=== PATIENT | male | born 1980 | race Caucasian/White ===

== ENCOUNTER 2017-04-10 09:48 | Emergency (ER) | payer OTHER ==
--- NOTE | 2017-04-10 09:59 | ER Document Report ---
ED Medical Screen (RME) - General Chief Complaint: Abdominal Pain Stated Complaint: ABDOMINAL PAIN Time Seen by Provider: 04/10/17 09:58 Notes: Patient states he has right flank pain that radiates across the lower part of his abdomen. He states he does have a history of diverticulitis and this does feel similar. He states he has been able to control in the past with a liquid diet but this is not currently working. He also states he has seen blood in his urine and believes he may have a kidney stone. He states his symptoms been going on for approximately 2 days. No previous abdominal surgeries. No significant chronic medical conditions. TRAVEL OUTSIDE OF THE [place] IN LAST 30 DAYS: No - Related Data Allergies/Adverse Reactions: No Known Allergies Allergy (Unverified 09/21/15 12:16) Past Medical History - Past Medical History Cardiac Medical History: Denies: Hx Coronary Artery Disease, Hx Heart Attack, Hx Hypertension Pulmonary Medical History: Reports: Hx Bronchitis Denies: Hx Asthma, Hx COPD, Hx Pneumonia Neurological Medical History: Denies: Hx Cerebrovascular Accident, Hx Seizures Renal/ Medical History: Denies: Hx Peritoneal Dialysis GI Medical History: Reports: Hx Gastroesophageal Reflux Disease Musculoskeltal Medical History: Denies Hx Arthritis Psychiatric Medical History: Reports: Hx Anxiety, Hx Attention Deficit Hyperactivity Disorder Past Surgical History: Reports: Hx Testicular Surgery. Denies: Hx Pacemaker - Immunizations Hx Diphtheria, Pertussis, Tetanus Vaccination: Yes Physical Exam - Vital signs Vitals: Resp 04/10/17 09:50 Course - Vital Signs Vital signs: Temp Pulse Resp BP Pulse Ox 04/10/17 09:50
[2017-04-10 10:27] LABS: HEMATOCRIT 45.1 % (37.9-51.0); HEMOGLOBIN 15.4 g/dL (13.5-17.0); HGB HCT DIFFERENCE 1.1; MEAN CORPUSCULAR HEMOGLOBIN 31.4 pg (27.0-33.4); MEAN CORPUSCULAR HGB CONC 34.1 g/dL (32.0-36.0); MEAN CORPUSCULAR VOLUME 92 fl (80-97); RED CELL DISTRIBUTION WIDTH 13.3 % (11.5-14.0); WHITE BLOOD COUNT 21.8 10^3/uL (4.0-10.5)
[2017-04-10 10:33] LABS: APPEARANCE,URINE CLEAR; BILIRUBIN,URINE NEGATIVE (NEGATIVE); GLUCOSE, URINE NEGATIVE (NEGATIVE); KETONES,URINE 80 mg/dL (NEGATIVE); LEUKOCYTE ESTERASE,URINE NEGATIVE (NEGATIVE); NITRITE,URINE NEGATIVE (NEGATIVE); PROTEIN,URINE 30 mg/dL (NEGATIVE); URINE SPECIFIC GRAVITY 1.028
[2017-04-10 10:45] LABS: BASOPHILS % (MANUAL) 0 % (0-2); EOSINOPHILS % (MANUAL) 0 % (0-6); LYMPHOCYTES % (MANUAL) 7 % (13-45); TOTAL CELLS COUNTED 100
[2017-04-10 10:48] LABS: ALANINE AMINOTRANSFERASE 31 U/L (21-72); ALBUMIN 4.4 g/dL (3.5-5.0); ALKALINE PHOSPHATASE 82 U/L (38-126); ANION GAP 15 (5-19); ASPARTATE AMINO TRANSFERASE 25 U/L (17-59); BILIRUBIN,DIRECT 0.6 mg/dL (0.0-0.4); BILIRUBIN,TOTAL 1.7 mg/dL (0.2-1.3); BLOOD UREA NITROGEN 15 mg/dL (7-20); CALCIUM 9.7 mg/dL (8.4-10.2); CARBON DIOXIDE 21 mmol/L (22-30); CHLORIDE 100 mmol/L (98-107); CREATININE RESULT 1.02 mg/dL (0.52-1.25); GLUCOSE 97 mg/dL (75-110); LIPASE 17.5 U/L (23-300); PLATELET CLUMPS PRESENT; POTASSIUM 4.2 mmol/L (3.6-5.0); RBC MORPHOLOGY COMMENT NORMO-CYTIC/CHROMIC; SODIUM 135.8 mmol/L (137-145); TOTAL PROTEIN 7.4 g/dL (6.3-8.2); TOXIC GRANULATION SLIGHT; TOXIC VACUOLATION PRESENT
--- NOTE | 2017-04-10 12:04 | ER Document Report ---
ED GI/ - General Mode of Arrival: Ambulatory Information source: Patient TRAVEL OUTSIDE OF THE [place] IN LAST 30 DAYS: No <CHARLES LYONS - Last Filed: 04/10/17 12:44> <VELMA TORRES - Last Filed: 04/10/17 14:11> - General Chief Complaint: Abdominal Pain Stated Complaint: ABDOMINAL PAIN Time Seen by Provider: 04/10/17 09:58 Notes: Patient is a 37-year-old male that presents to the emergency department today with complaints of bilateral lower quadrant abdominal pain. Patient states he noticed blood in his urine as well. Patient states his symptoms began Sunday evening which is 3 days ago. Patient states he was told in the past that he had stones in his kidneys. (CHARLES LYONS) - Related Data Allergies/Adverse Reactions: No Known Allergies Allergy (Verified 04/10/17 09:59) Home Medications: Current Home Medications Loratadine [Claritin] 10 mg PO DAILY 04/10/17 [History] Past Medical History - General Information source: Patient - Social History Smoking Status: Current Every Day Smoker Cigarette use (# per day): Yes Frequency of alcohol use: Rare Lives with: Family Family History: Reviewed & Not Pertinent Patient has suicidal ideation: No Pulmonary Medical History: Reports: Hx Bronchitis GI Medical History: Reports: Hx Gastroesophageal Reflux Disease Psychiatric Medical History: Reports: Hx Anxiety, Hx Attention Deficit Hyperactivity Disorder Past Surgical History: Reports: Hx Testicular Surgery - Immunizations Hx Diphtheria, Pertussis, Tetanus Vaccination: Yes <CHARLES LYONS - Last Filed: 04/10/17 12:44> Review of Systems - Review of Systems Constitutional: No symptoms reported EENT: No symptoms reported Cardiovascular: No symptoms reported Respiratory: No symptoms reported Gastrointestinal: See HPI, Abdominal pain Genitourinary: See HPI, Hematuria Male Genitourinary: No symptoms reported Musculoskeletal: No symptoms reported Skin: No symptoms reported Hematologic/Lymphatic: No symptoms reported Neurological/Psychological: See HPI, Headaches -: Yes All other systems reviewed and negative <CHARLES LYONS - Last Filed: 04/10/17 12:44> Physical Exam - Vital signs Interpretation: Normal - General General appearance: Appears well, Alert, Other - wearing sunglasses - HEENT Head: Normocephalic, Atraumatic Eyes: Normal Pupils: PERRL - Respiratory Respiratory status: No respiratory distress Breath sounds: Normal Chest palpation: Normal - Cardiovascular Rhythm: Regular Heart sounds: Normal auscultation Murmur: No - Abdominal Distension: No distension Bowel sounds: Normal Tenderness: Tender - lower bilateral tenderness with palpation Organomegaly: No organomegaly - Back Back: Tender - right lumbar tenderness with palpation - Extremities General upper extremity: Normal inspection, Normal ROM. No: Edema General lower extremity: Normal inspection, Normal ROM. No: Edema - Neurological Neuro grossly intact: Yes Cognition: Normal Orientation: AAOx4 Cathryn Coma Scale Eye Opening: Spontaneous Cathryn Coma Scale Verbal: Oriented [place]lin Coma Scale Motor: Obeys Commands [place]lin Coma Scale Total: 15 Speech: Normal - Psychological Associated symptoms: Normal affect, Normal mood - Skin Skin Temperature: Warm Skin Moisture: Dry Skin Color: Normal <CHARLES LYONS - Last Filed: 04/10/17 12:44> - Vital signs Vitals: Resp 20 04/10/17 09:50 Course - Laboratory Result Diagrams: 04/10/17 10:07 04/10/17 10:07 <CHARLES LYONS - Last Filed: 04/10/17 12:44> - Laboratory Result Diagrams: 04/10/17 10:07 04/10/17 10:07 - Diagnostic Test Radiology reviewed: Image reviewed, Reports reviewed - Sigmoid diverticulitis <VELMA TORRES - Last Filed: 04/10/17 14:11> - Vital Signs Vital signs: Temp Pulse Resp BP Pulse Ox 20 04/10/17 09:50 - Laboratory Laboratory results interpreted by me: 04/10/17 04/10/17 04/10/17 10:07 10:07 10:07 WBC 21.8 H Seg Neuts % (Manual) 83 H Lymphocytes % (Manual) 7 L Abs Neuts (Manual) 18.1 H Abs Monocytes (Manual) 1.7 H Sodium 135.8 L Carbon Dioxide 21 L Total Bilirubin 1.7 H Direct Bilirubin 0.6 H Lipase 17.5 L Urine Protein 30 H Urine Ketones 80 H Urine Blood MODERATE H Urine Urobilinogen 4.0 H Discharge <CHARLES LYONS - Last Filed: 04/10/17 12:44> <VELMA TORRES - Last Filed: 04/10/17 14:11> - Discharge Clinical Impression: Diverticulitis of sigmoid colon Condition: Stable Disposition: HOME, SELF-CARE Additional Instructions: Diverticulitis: You have been diagnosed as having diverticulitis. This is an inflammation of a small pouch attached to the colon, called a diverticulum. Many of these small pouches can form on the colon as you get older. They are often caused by constipation. When inflamed or infected, symptoms arise -- usually abdominal pain, constipation or diarrhea, fever, and blood in the stool. Severe diverticulitis may require hospitalization. More mild cases are usually treated with antibiotics and clear liquid diet. As you improve, a diet low in residue (one which forms little stool) is prescribed. When you are better, you should eat a high-fiber diet. Stool softeners ( like Metamucil) are usually recommended. Call the doctor or go to the hospital if there is increasing pain, vomiting , high fever, large amounts of blood passed, or if bowel movements cease. TAKE THE MEDICATION PRESCRIBED. DRINK PLENTY OF FLUIDS. REST. CALL [facility] FOR AN APPOINTMENT. RETURN TO THE EMERGENCY ROOM IF ANY NEW OR WORSENING SYMPTOMS. Prescriptions: Ciprofloxacin HCl [Cipro 750 mg Tablet] 750 mg PO BID #14 tablet Hydrocodone/Acetaminophen [Hydrocodon-Acetaminophen 5-325] 1 each PO Q4 PRN #15 tablet PRN Reason: For Pain Metronidazole [Flagyl 500 mg Tablet] 500 mg PO QID #28 tablet Forms: Return to Work Scribe Attestation: 04/10/17 14:11 I personally performed the services described in the documentation, reviewed and edited the documentation which was dictated to the scribe in my presence, and it accurately records my words and actions. (VELMA TORRES) Adamibe Documentation - Scribe Written by Macarena:: Macarena Ewing, 04/10/2017 1338 acting as scribe for :: Olive <CHARLES LYONS - Last Filed: 04/10/17 12:44>
[2017-04-10] MEDS ORDERED: NORMAL SALINE 1000 ML 1,000 ML IV ONE (12:19)
[2017-04-10] MEDS ORDERED: ONDANSETRON HCL INJ/PF 4 MG/2 ML SDV IV ONE (12:20)
[2017-04-10] MEDS ORDERED: MORPHINE SULFATE 10 MG/ML INJ IV ONE (12:20)
--- NOTE | 2017-04-10 13:27 | RADIOLOGY REPORT (SQ) ---
EXAM DESCRIPTION: CT ABD/PELVIS WITH IV ONLY COMPLETED DATE/TIME: 04/10/2017 1:14 pm REASON FOR STUDY: lower abd pain, leukocytosis, PMH diverticulitis COMPARISON: 09/21/2015 TECHNIQUE: CT scan of the abdomen and pelvis performed using helical scanning technique with dynamic intravenous contrast injection. No oral contrast. Images reviewed with lung, soft tissue, and bone windows. Reconstructed coronal and sagittal MPR images reviewed. Delayed images for evaluation of the urinary system also acquired. All images stored on PACS. All CT scanners at this facility use dose modulation, iterative reconstruction, and/or weight based d osing when appropriate to reduce radiation dose to as low as reasonably achievable (ALARA). [facility]: Dose Right [facility]: CareDose [facility]: Dose Right [facility]: Teradose 4D [facility]: Retrace CONTRAST TYPE AND DOSE: contrast/concentration: Isovue 370.00 mg/ml; Total Contrast Delivered: 100.0 ml; Total Saline Delivered: 70.0 ml RENAL FUNCTION: BUN 15, creatinine 1.02 RADIATION DOSE: Up-to-date CT equipment and radiation dose reduction techniques were employed. CTDIv ol: 12.4 - 17.2 mGy. DLP: 1686 mGy-cm.. LIMITATIONS: None. FINDINGS: LOWER CHEST: There is bibasilar dependent atelectasis. LIVER: Normal size. No masses. No dilated ducts. SPLEEN: Normal size. No focal lesions. PANCREAS: No masses. No significant calcifications. No adjacent inflammation or peripancreatic fluid collections. Pancreatic duct not dilated. GALLBLADDER: No identified stones by CT criteria. No inflammatory changes to suggest cholecystitis. ADRENAL GLANDS: No significant masses or asymmetry. RIGHT KIDNEY AND URETER: No solid masses. There are small cortical cysts. No significant calcifica tions. No hydronephrosis or hydroureter. LEFT KIDNEY AND URETER: No solid masses. No significant calcifications. No hydronephrosis or hydr oureter. AORTA AND VESSELS: No aneurysm. No dissection. Renal arteries, SMA, celiac without stenosis. RETROPERITONEUM: No retroperitoneal adenopathy, hemorrhage or masses. BOWEL AND PERITONEAL CAVITY: There is mesenteric inflammation in the left lower abdomen and pelvis th is appears to be secondary to diverticulitis involving the sigmoid colon. No focal abscess or fluid collection. No free air. APPENDIX: Normal. PELVIS: No mass. No free fluid. Normal bladder. ABDOMINAL WALL: There is a small umbilical hernia containing omental fat only. BONES: No significant or acute findings. OTHER: No other significant finding. IMPRESSION: Inflammatory changes in the lower abdomen and pelvis most consistent with diverticulitis . No free air or focal abscess. TECHNICAL DOCUMENTATION: JOB ID: [id number] Quality ID # [id number]: Final reports with documentation of one or more dose reduction techniques (e.g., Au tomated exposure control, adjustment of the mA and/or kV according to patient size, use of iterative reconstruction technique) 2010 [employer]- All Rights Reserved
[2017-04-10] MEDS ORDERED: CIPROFLOXACIN HCL 750 MG TABLET PO ONE (14:09)
[2017-04-10] MEDS ORDERED: METRONIDAZOLE 500 MG TABLET PO ONE (14:09)
[2017-04-10 14:33] VITALS: BP 129/78
== END 2017-04-10 14:31 | disposition home or self-care (01) ==
LOC: ER 09:48
DX: K57.32 Diverticulitis of large intestine without perforation or abscess without bleeding (principal); R10.30 Lower abdominal pain, unspecified; R31.9 Hematuria, unspecified; R51 Headache; F17.210 Nicotine dependence, cigarettes, uncomplicated; K21.9 Gastro-esophageal reflux disease without esophagitis
CPT/HCPCS: 99284; 96374; 96375; 36415; 83690; 85025; 80053; 81001; 74177; J2270; J2405; J3490; J7030

== ENCOUNTER 2017-10-20 18:15 | Inpatient (IN) | payer OTHER ==
[2017-10-20] MEDS ORDERED: NORMAL SALINE 1000 ML 1,000 ML IV ONE (18:30)
[2017-10-20] MEDS ORDERED: ONDANSETRON HCL INJ/PF 4 MG/2 ML SDV IV ONE (18:30)
--- NOTE | 2017-10-20 18:37 | ER Document Report ---
ED Medical Screen (RME) - General Chief Complaint: Abdominal Pain Stated Complaint: ABDOMINAL PAIN Time Seen by Provider: 10/20/17 18:31 Mode of Arrival: Ambulatory Information source: Patient Notes: 37 y.o male presents to the ED with RT sided lower abdominal pain. He states his pain is in the same location and similar to the time he had diverticulitis one year ago. He notes some nausea but denies any vomiting. I have greeted and performed a rapid initial assessment of the patient. A comprehensive ED assessment and evaluation of the patient, analysis of test results, and completion of the medical decision making process will be conducted by additional ED providers. TRAVEL OUTSIDE OF THE [place] IN LAST 30 DAYS: No - Related Data Allergies/Adverse Reactions: No Known Allergies Allergy (Verified 04/10/17 09:59) Past Medical History - General Information source: Patient - Social History Cigarette use (# per day): Yes Frequency of alcohol use: Rare Drug Abuse: Marijuana Pulmonary Medical History: Reports: Hx Bronchitis Renal/ Medical History: Denies: Hx Peritoneal Dialysis GI Medical History: Reports: Hx Diverticulitis, Hx Gastroesophageal Reflux Disease Musculoskeltal Medical History: Denies Hx Arthritis Psychiatric Medical History: Reports: Hx Anxiety, Hx Attention Deficit Hyperactivity Disorder Past Surgical History: Reports: Hx Testicular Surgery. Denies: Hx Pacemaker - Immunizations Hx Diphtheria, Pertussis, Tetanus Vaccination: Yes Review of Systems - Review of Systems Constitutional: No symptoms reported EENT: No symptoms reported Cardiovascular: No symptoms reported Respiratory: No symptoms reported Gastrointestinal: See HPI, Abdominal pain - RLQ, Nausea. denies: Vomiting Genitourinary: No symptoms reported Male Genitourinary: No symptoms reported Musculoskeletal: No symptoms reported Skin: No symptoms reported Hematologic/Lymphatic: No symptoms reported Neurological/Psychological: No symptoms reported -: Yes All other systems reviewed and negative Physical Exam - Vital signs Vitals: Temp Pulse Resp BP Pulse Ox 99.0 F 89 18 121/77 99 10/20/17 18:18 10/20/17 18:18 10/20/17 18:18 10/20/17 18:18 10/20/17 18:18 - Notes Notes: Physical Exam: General: Alert, appears well. HEENT: Normocephalic. Atraumatic. PERRLA. Extraocular movements intact. Oropharynx clear. Neck: Supple. Respiratory: No respiratory distress. Abdominal: Mild RLQ tenderness. No distension. Extremities: Moves all four extremities. Neurological: Normal cognition. AAOx4. Normal speech. Psychological: Normal affect. Normal Mood. Skin: Warm. Dry. Normal color. Course - Vital Signs Vital signs: Temp Pulse Resp BP Pulse Ox 99.0 F 89 18 121/77 99 10/20/17 18:18 10/20/17 18:18 10/20/17 18:18 10/20/17 18:18 10/20/17 18:18 Scribe Documentation - Scribe Written by Macarena:: Macarena Moody 10/20/17 0009 acting as scribe for :: Jesus Manuel
[2017-10-20 19:05] LABS: ABSOLUTE EOSINOPHILS # (AUTO) 0.1 10^3/uL (0.0-0.6); ABSOLUTE LYMPHOCYTES (AUTO) 1.7 10^3/uL (0.5-4.7); ABSOLUTE MONOCYTES (AUTO) 1.1 10^3/uL (0.1-1.4); ABSOLUTE NEUT (AUTO) 11.3 10^3/uL (1.7-8.2); BASOPHILS % (AUTO) 0.3 % (0-2); EOSINOPHILS % (AUTO) 0.4 % (0-6); HEMATOCRIT 48.2 % (37.9-51.0); HEMOGLOBIN 16.4 g/dL (13.5-17.0); LYMPHOCYTES % (AUTO) 11.9 % (13-45); MEAN CORPUSCULAR HEMOGLOBIN 30.7 pg (27.0-33.4); MEAN CORPUSCULAR VOLUME 90 fl (80-97); MONOCYTES % (AUTO) 8.1 % (3-13); PLATELET COUNT 234 10^3/uL (150-450); RED BLOOD COUNT 5.34 10^6/uL (4.35-5.55); RED CELL DISTRIBUTION WIDTH 13.3 % (11.5-14.0); SEGMENTED NEUTROPHILS % (AUTO) 79.3 % (42-78); TOTAL CELLS COUNTED % (AUTO) 100 %; WHITE BLOOD COUNT 14.2 10^3/uL (4.0-10.5)
[2017-10-20 19:15] LABS: APPEARANCE,URINE CLEAR; BILIRUBIN,URINE NEGATIVE (NEGATIVE); COLOR,URINE YELLOW; GLUCOSE, URINE NEGATIVE (NEGATIVE); KETONES,URINE 80 mg/dL (NEGATIVE); LEUKOCYTE ESTERASE,URINE NEGATIVE (NEGATIVE); NITRITE,URINE NEGATIVE (NEGATIVE); PROTEIN,URINE NEGATIVE (NEGATIVE); URINE SPECIFIC GRAVITY 1.019
--- NOTE | 2017-10-20 19:22 | ER Document Report ---
ED General - General Chief Complaint: Abdominal Pain Stated Complaint: ABDOMINAL PAIN Time Seen by Provider: 10/20/17 18:31 Mode of Arrival: Ambulatory Information source: Patient Notes: 37-year-old male with a history of gastritis, GERD, diverticulitis presents with complaint of abdominal pain that started this morning. Pain is located in the right and left lower quadrant but greater on the right side. He describes it as a constant, stabbing pain with associated dysuria. Patient has had nausea without vomiting. His last bowel movement was 2 days prior to arrival. He denies any fever, chills, chest pain, shortness of breath, hematuria. Patient denies prior history of kidney stone. He does have a history of diverticulitis and was treated several months ago. He has no history of abdominal surgery. TRAVEL OUTSIDE OF THE [place] IN LAST 30 DAYS: No - Related Data Allergies/Adverse Reactions: No Known Allergies Allergy (Verified 04/10/17 09:59) Past Medical History - General Information source: Patient - Social History Smoking Status: Unknown if Ever Smoked Cigarette use (# per day): Yes Chew tobacco use (# tins/day): No Frequency of alcohol use: Rare Drug Abuse: Marijuana Family History: Reviewed & Not Pertinent Patient has suicidal ideation: No Patient has homicidal ideation: No Pulmonary Medical History: Reports: Hx Bronchitis Renal/ Medical History: Denies: Hx Peritoneal Dialysis GI Medical History: Reports: Hx Diverticulitis, Hx Gastroesophageal Reflux Disease Musculoskeltal Medical History: Denies Hx Arthritis Psychiatric Medical History: Reports: Hx Anxiety, Hx Attention Deficit Hyperactivity Disorder Past Surgical History: Reports: Hx Testicular Surgery. Denies: Hx Pacemaker - Immunizations Hx Diphtheria, Pertussis, Tetanus Vaccination: Yes Review of Systems - Review of Systems Constitutional: denies: Fever EENT: No symptoms reported Cardiovascular: denies: Chest pain Respiratory: denies: Short of breath Gastrointestinal: Abdominal pain, Nausea, Vomiting, Last bowel movement - 2 days prior to arrival Genitourinary: Dysuria Musculoskeletal: No symptoms reported Skin: No symptoms reported Neurological/Psychological: No symptoms reported Physical Exam - Vital signs Vitals: Temp Pulse Resp BP Pulse Ox 99.0 F 89 18 121/77 99 10/20/17 18:18 10/20/17 18:18 10/20/17 18:18 10/20/17 18:18 10/20/17 18:18 Interpretation: Normal. No: Tachycardic, Febrile - General General appearance: Appears well, Alert In distress: Mild - HEENT Head: Normocephalic, Atraumatic Eyes: Normal Extraocular movements intact: Yes Pupils: PERRL - Abdominal Inspection: Normal Distension: No distension Bowel sounds: Normal Tenderness: Tender - Tender to palpation in the left and right lower quadrant without guarding or rebound. Course - Re-evaluation Re-evalutation: 10/20/17 19:42 Spoke to the radiologist who stated that there is a perforated sigmoid diverticulum with free air in the abdomen. General surgery contacted. Zosyn administered. 10/20/17 19:[address] Patient made aware of CT findings and need for surgical consult. Patient made n.p.o. No evidence of peritonitis on exam. 10/20/17 20:17 Patient admitted by general surgery Dr. Camacho. 10/20/17 22:24 37-year-old male with a history of diverticulitis presents with complaint of 1 day of abdominal pain. Upon arrival vitals were reviewed and within normal limits. Patient does not appear toxic or dehydrated. Exam is significant for tenderness in the right and left lower quadrant. CAT scan of the abdomen is significant for a perforated sigmoid diverticulum with free air. Patient was made n.p.o.. He received IV fluids, Zosyn, morphine and Zofran during his ED course. Patient was admitted to Dr. Camacho. CBC significant for leukocytosis without anemia. BMP and lactic acid within normal limits. Laboratory 10/20/17 10/20/17 10/20/17 18:42 18:42 18:42 WBC 14.2 H RBC 5.34 Hgb 16.4 Hct 48.2 MCV 90 MCH 30.7 MCHC 34.0 RDW 13.3 Plt Count 234 Seg Neutrophils % 79.3 H Lymphocytes % 11.9 L Monocytes % 8.1 Eosinophils % 0.4 Basophils % 0.3 Absolute Neutrophils 11.3 H Absolute Lymphocytes 1.7 Absolute Monocytes 1.1 Absolute Eosinophils 0.1 Absolute Basophils 0.0 PT INR APTT Sodium 136.7 L Potassium 3.7 Chloride 101 Carbon Dioxide 25 Anion Gap 11 BUN 14 Creatinine 0.90 Est GFR ( Amer) > 60 Est GFR (Non-Af Amer) > 60 Glucose 83 Lactic Acid Calcium 9.4 Total Bilirubin 0.6 Direct Bilirubin 0.4 Neonat Total Bilirubin Not Reportable Neonat Direct Bilirubin Not Reportable Neonat Indirect Bili Not Reportable AST 51 ALT 48 Alkaline Phosphatase 70 Total Protein 7.8 Albumin 4.6 Urine Color YELLOW Urine Appearance CLEAR Urine pH 7.0 Ur Specific [place] 1.019 Urine Protein NEGATIVE Urine Glucose (UA) NEGATIVE Urine Ketones 80 H Urine Blood NEGATIVE Urine Nitrite NEGATIVE Urine Bilirubin NEGATIVE Urine Urobilinogen 4.0 H Ur Leukocyte Esterase NEGATIVE Urine WBC (Auto) 1 Urine RBC (Auto) 7 Urine Mucus (Auto) RARE Urine Ascorbic Acid NEGATIVE Blood Type Antibody Screen 10/20/17 10/20/17 10/20/17 18:42 19:54 19:54 WBC RBC Hgb Hct MCV MCH MCHC RDW Plt Count Seg Neutrophils % Lymphocytes % Monocytes % Eosinophils % Basophils % Absolute Neutrophils Absolute Lymphocytes Absolute Monocytes Absolute Eosinophils Absolute Basophils PT 13.6 INR 0.97 APTT 41.1 H Sodium Potassium Chloride Carbon Dioxide Anion Gap BUN Creatinine Est GFR ( Amer) Est GFR (Non-Af Amer) Glucose Lactic Acid 0.9 Calcium Total Bilirubin Direct Bilirubin Neonat Total Bilirubin Neonat Direct Bilirubin Neonat Indirect Bili AST ALT Alkaline Phosphatase Total Protein Albumin Urine Color Urine Appearance Urine pH Ur Specific [place] Urine Protein Urine Glucose (UA) Urine Ketones Urine Blood Urine Nitrite Urine Bilirubin Urine Urobilinogen Ur Leukocyte Esterase Urine WBC (Auto) Urine RBC (Auto) Urine Mucus (Auto) Urine Ascorbic Acid Blood Type O POSITIVE Antibody Screen NEGATIVE Abdomen/Pelvis CT 10/20/17 18:29 IMPRESSION: Perforated sigmoid diverticulitis without abscess. Free intraperitoneal air. - Vital Signs Vital signs: Temp Pulse Resp BP Pulse Ox 98.7 F 78 18 118/73 100 10/20/17 20:54 10/20/17 20:54 10/20/17 20:54 10/20/17 20:54 10/20/17 20:54 - Laboratory Result Diagrams: 10/20/17 18:42 10/20/17 18:42 Laboratory results interpreted by me: 10/20/17 10/20/17 10/20/17 18:42 18:42 18:42 WBC 14.2 H Seg Neutrophils % 79.3 H Lymphocytes % 11.9 L Absolute Neutrophils 11.3 H APTT Sodium 136.7 L Urine Ketones 80 H Urine Urobilinogen 4.0 H 10/20/17 18:42 WBC Seg Neutrophils % Lymphocytes % Absolute Neutrophils APTT 41.1 H Sodium Urine Ketones Urine Urobilinogen Discharge - Discharge Clinical Impression: Bowel perforation Condition: Good Disposition: ADMITTED INPATIENT Admitting Provider: Surgicalist Unit Admitted: Surgical Floor
[2017-10-20 19:33] LABS: ALANINE AMINOTRANSFERASE 48 U/L (21-72); ALBUMIN 4.6 g/dL (3.5-5.0); ALKALINE PHOSPHATASE 70 U/L (38-126); ANION GAP 11 (5-19); ASPARTATE AMINO TRANSFERASE 51 U/L (17-59); BILIRUBIN,DIRECT 0.4 mg/dL (0.0-0.4); BILIRUBIN,TOTAL 0.6 mg/dL (0.2-1.3); BLOOD UREA NITROGEN 14 mg/dL (7-20); CALCIUM 9.4 mg/dL (8.4-10.2); CARBON DIOXIDE 25 mmol/L (22-30); CHLORIDE 101 mmol/L (98-107); GLUCOSE 83 mg/dL (75-110); POTASSIUM 3.7 mmol/L (3.6-5.0); SODIUM 136.7 mmol/L (137-145); TOTAL PROTEIN 7.8 g/dL (6.3-8.2)
[2017-10-20] MEDS ORDERED: PIPERACILLIN/TAZOBACTAM 3.375 GM VIAL IV ONE (19:38)
[2017-10-20] MEDS ORDERED: MORPHINE SULFATE 10 MG/ML INJ IV ONE (19:38)
--- NOTE | 2017-10-20 19:44 | RADIOLOGY REPORT (SQ) ---
EXAM DESCRIPTION: CT ABD/PELVIS WITH IV ONLY COMPLETED DATE/TIME: 10/20/2017 7:06 pm REASON FOR STUDY: RLQ pain COMPARISON: CT abdomen pelvis 04/10/2017 TECHNIQUE: CT scan of the abdomen and pelvis performed using helical scanning technique with dynamic intravenous contrast injection. No oral contrast. Images reviewed with lung, soft tissue, and bone windows. Reconstructed coronal and sagittal MPR images reviewed. Delayed images for evaluation of the urinary system also acquired. All images stored on PACS. All CT scanners at this facility use dose modulation, iterative reconstruction, and/or weight based d osing when appropriate to reduce radiation dose to as low as reasonably achievable (ALARA). [facility]: Dose Right [facility]: CareDose [facility]: Dose Right [facility]: Teradose 4D [facility]: Biocartis CONTRAST TYPE AND DOSE: contrast/concentration: Isovue 370.00 mg/ml; Total Contrast Delivered: 101.2 ml; Total Saline Delivered: 73.0 ml RENAL FUNCTION: None required. The patient is less than 50 years old. RADIATION DOSE: CT Rad equipment meets quality standard of care and radiation dose reduction techniq ues were employed. CTDIvol: 10.8 - 15.2 mGy. DLP: 1427 mGy-cm.. LIMITATIONS: None. FINDINGS: There is free intraperitoneal air. A 10 cm long segment of distal descending/proximal sigmoid colon wall thickening, luminal narrowing, and surrounding inflammatory changes present from diverticulitis. Free air is likely from diverticul ar perforation. This report was called as a critical result to Dr. Kaminski in the emergency room, 1920 hours 10/20/2017 . LOWER CHEST: No significant findings. No nodules or infiltrates. LIVER: Normal size. No masses. No dilated ducts. SPLEEN: Normal size. No focal lesions. PANCREAS: No masses. No significant calcifications. No adjacent inflammation or peripancreatic fluid collections. Pancreatic duct not dilated. GALLBLADDER: No identified stones by CT criteria. No inflammatory changes to suggest cholecystitis. ADRENAL GLANDS: No significant masses or asymmetry. RIGHT KIDNEY AND URETER: No solid masses. 1 cm cyst right upper pole kidney. No significant calcifi cations. No hydronephrosis or hydroureter. LEFT KIDNEY AND URETER: No solid masses. No significant calcifications. No hydronephrosis or hydr oureter. AORTA AND VESSELS: No aneurysm. No dissection. Renal arteries, SMA, celiac without stenosis. RETROPERITONEUM: No retroperitoneal adenopathy, hemorrhage or masses. BOWEL AND PERITONEAL CAVITY: Free intraperitoneal air related to perforated sigmoid colon diverticulu m. Short segment of distal descending/ proximal sigmoid colon wall thickening and luminal narrowing with surrounding inflammatory change in the pericolic fat from diverticulitis. No bowel obstruction. APPENDIX: Normal. PELVIS: No mass. No free fluid. Normal bladder. ABDOMINAL WALL: No masses. No hernias. BONES: No significant or acute findings. OTHER: No other significant finding. IMPRESSION: Perforated sigmoid diverticulitis without abscess. Free intraperitoneal air. COMMENT: Pertinent findings on the imaging study reported as a CRITICAL RESULT to Gordy ANDERSEN at19:20 on 10/20/2017. Category of Critical Result: Perforated diverticulitis with free intraperitoneal air TECHNICAL DOCUMENTATION: JOB ID: [id number] Quality ID # [id number]: Final reports with documentation of one or more dose reduction techniques (e.g., Au tomated exposure control, adjustment of the mA and/or kV according to patient size, use of iterative reconstruction technique) 2010 [employer]- All Rights Reserved Reading location - IP/workstation name: [email or web address]
[2017-10-20 20:00] LABS: INTERNATIONAL RATION (INR) 0.97; PARTIAL THROMBOPLASTIN TIME 41.1 SEC (23.5-35.8); PROTHROMBIN TIME 13.6 SEC (11.4-15.4)
--- NOTE | 2017-10-20 20:28 | PDOC H&P ---
History of Present Illness Admission Date/PCP: ANN SOLOMON MD History of Present Illness: JUDI CASTRO is a 37 year old male with a hx of abdominal pain since thois morning. A CT scan A/P has been done and it reveals perforated sigmoid diverticulitits ewith a few bubbles of free air in the upper abdomen and sigmoid mesentery. This is his third episode of sigmoid perforation during the past year. Past Medical History Pulmonary Medical History: Reports: Bronchitis GI Medical History: Reports: Diverticulitis - two episodes of perforated sigmoid diverticulitis during the past year, Gastroesophageal Reflux Disease Musculoskeltal Medical History: Denies: Arthritis Psychiatric Medical History: Reports: Attention Deficit Hyperactivity Disorder Hematology: Denies: Anemia Social History Smoking Status: Unknown if Ever Smoked Frequency of Alcohol Use: Occasional Hx Recreational Drug Use: Yes Drugs: Marijuana Family History Family History: Reviewed & Not Pertinent Parental Family History Reviewed: No Children Family History Reviewed: No Sibling(s) Family History Reviewed.: No Medication/Allergy Home Medications: Loratadine [Claritin] 10 mg PO DAILY 04/10/17 Allergies/Adverse Reactions: No Known Allergies Allergy (Verified 04/10/17 09:59) Physical Exam Vital Signs: Temp Pulse Resp BP Pulse Ox 99.0 F 89 18 121/77 99 10/20/17 18:18 10/20/17 18:18 10/20/17 18:18 10/20/17 18:18 10/20/17 18:18 Intake & Output 10/19/17 10/20/17 10/21/17 06:59 06:59 06:59 Weight 96.1 kg General appearance: PRESENT: no acute distress Mouth exam: PRESENT: moist Neck exam: PRESENT: full ROM Respiratory exam: PRESENT: clear to auscultation allyssa Cardiovascular exam: PRESENT: RRR GI/Abdominal exam: PRESENT: hypoactive bowel sounds, soft, tenderness - LLQ, other - diverticulitis woith perforation x 2 during past year Extremities exam: PRESENT: full ROM Results Laboratory Results: 10/20/17 18:42 10/20/17 18:42 10/20/17 10/20/17 10/20/17 18:42 18:42 18:42 WBC 14.2 H RBC 5.34 Hgb 16.4 Hct 48.2 MCV 90 MCH 30.7 MCHC 34.0 RDW 13.3 Plt Count 234 Seg Neutrophils % 79.3 H Lymphocytes % 11.9 L Monocytes % 8.1 Eosinophils % 0.4 Basophils % 0.3 Absolute Neutrophils 11.3 H Absolute Lymphocytes 1.7 Absolute Monocytes 1.1 Absolute Eosinophils 0.1 Absolute Basophils 0.0 Sodium 136.7 L Potassium 3.7 Chloride 101 Carbon Dioxide 25 Anion Gap 11 BUN 14 Creatinine 0.90 Est GFR ( Amer) > 60 Est GFR (Non-Af Amer) > 60 Glucose 83 Calcium 9.4 Total Bilirubin 0.6 AST 51 ALT 48 Alkaline Phosphatase 70 Total Protein 7.8 Albumin 4.6 Urine Color YELLOW Urine Appearance CLEAR Urine pH 7.0 Ur Specific [place] 1.019 Urine Protein NEGATIVE Urine Glucose (UA) NEGATIVE Urine Ketones 80 H Urine Blood NEGATIVE Urine Nitrite NEGATIVE Ur Leukocyte Esterase NEGATIVE Urine WBC (Auto) 1 Urine RBC (Auto) 7 Impressions: Abdomen/Pelvis CT 10/20/17 18:29 IMPRESSION: Perforated sigmoid diverticulitis without abscess. Free intraperitoneal air. Assessment & Plan - Plan Summary Plan Summary: A/ recurrent perforated sigmoid diverticultits (third episode during past year) with few bubble of free intraperitoneal air Leukocytosis P/ No plan for surgery at this time Admit NPO IVF 150 mL/hr Zosyn Observation If symptoms and or WBC worsen, I will consider repeating a CT scan A/P and potentially operate on this patient. It would be preferable to have the patient heal from this episode and proceed with elective colectomy in 3 months.
[2017-10-20] MEDS ORDERED: ONDANSETRON HCL INJ/PF 4 MG/2 ML SDV IV PRN (20:50)
[2017-10-20] MEDS ORDERED: PIPERACILLIN/TAZOBACTAM 3.375 GM VIAL IV SCH (21:00)
[2017-10-20] MEDS: FAMOTIDINE INJ/PF 20 MG/2 ML SDV IV SCH (22:44)
[2017-10-20] MEDS: HEPARIN SOD (PORCINE) 5,000 UNIT/ML 1 ML SYRINGE SUBCUT SCH (22:44)
[2017-10-20] MEDS: KETOROLAC TROMETHAMINE INJ/PF 30 MG/1 ML SDV IV PRN (22:45)
[2017-10-20] MEDS: NORMAL SALINE 1000 ML 1,000 ML IV PRN (22:48)
[2017-10-21] MEDS ORDERED: PIPERACILLIN/TAZOBACTAM 3.375 GM VIAL IV PRN
[2017-10-21] MEDS ORDERED: PIPERACILLIN SODIUM/TAZOBACTAM 3.375 GM in NORMAL SALINE 100 ML IV SCH ×2
[2017-10-21 00:26] LABS: HEMATOCRIT 43.7 % (37.9-51.0); MEAN CORPUSCULAR HEMOGLOBIN 30.9 pg (27.0-33.4); MEAN CORPUSCULAR HGB CONC 34.2 g/dL (32.0-36.0); MEAN CORPUSCULAR VOLUME 90 fl (80-97); PLATELET COUNT 197 10^3/uL (150-450); RED BLOOD COUNT 4.84 10^6/uL (4.35-5.55); RED CELL DISTRIBUTION WIDTH 12.9 % (11.5-14.0)
[2017-10-21 01:20] LABS: ANION GAP 12 (5-19); BLOOD UREA NITROGEN 12 mg/dL (7-20); CALCIUM 8.7 mg/dL (8.4-10.2); CARBON DIOXIDE 23 mmol/L (22-30); CHLORIDE 103 mmol/L (98-107); GLUCOSE 73 mg/dL (75-110); POTASSIUM 3.8 mmol/L (3.6-5.0); SODIUM 137.7 mmol/L (137-145)
[2017-10-21] MEDS ORDERED: PIPERACILLIN/TAZOBACTAM 3.375 GM VIAL IV ONE (03:27)
[2017-10-21] MEDS: PIPERACILLIN SODIUM/TAZOBACTAM 3.375 GM in NORMAL SALINE 100 ML IV SCH ×4 (03:42→21:08)
[2017-10-21 07:22] LABS: ABSOLUTE EOSINOPHILS # (AUTO) 0.1 10^3/uL (0.0-0.6); ABSOLUTE LYMPHOCYTES (AUTO) 1.6 10^3/uL (0.5-4.7); ABSOLUTE MONOCYTES (AUTO) 0.9 10^3/uL (0.1-1.4); ABSOLUTE NEUT (AUTO) 8.6 10^3/uL (1.7-8.2); BASOPHILS % (AUTO) 0.4 % (0-2); EOSINOPHILS % (AUTO) 0.8 % (0-6); HEMATOCRIT 42.4 % (37.9-51.0); HEMOGLOBIN 14.2 g/dL (13.5-17.0); LYMPHOCYTES % (AUTO) 13.9 % (13-45); MEAN CORPUSCULAR HEMOGLOBIN 30.6 pg (27.0-33.4); MEAN CORPUSCULAR HGB CONC 33.5 g/dL (32.0-36.0); MEAN CORPUSCULAR VOLUME 91 fl (80-97); MONOCYTES % (AUTO) 8.1 % (3-13); PLATELET COUNT 209 10^3/uL (150-450); RED BLOOD COUNT 4.64 10^6/uL (4.35-5.55); RED CELL DISTRIBUTION WIDTH 13.1 % (11.5-14.0); SEGMENTED NEUTROPHILS % (AUTO) 76.8 % (42-78); TOTAL CELLS COUNTED % (AUTO) 100 %; WHITE BLOOD COUNT 11.1 10^3/uL (4.0-10.5)
[2017-10-21 07:40] LABS: ANION GAP 11 (5-19); BLOOD UREA NITROGEN 14 mg/dL (7-20); CALCIUM 8.5 mg/dL (8.4-10.2); CARBON DIOXIDE 20 mmol/L (22-30); CHLORIDE 106 mmol/L (98-107); GLUCOSE 68 mg/dL (75-110); POTASSIUM 3.6 mmol/L (3.6-5.0); SODIUM 137.4 mmol/L (137-145)
[2017-10-21] MEDS: KETOROLAC TROMETHAMINE INJ/PF 30 MG/1 ML SDV IV PRN ×2 (08:04→17:24)
[2017-10-21] MEDS: NORMAL SALINE 1000 ML 1,000 ML IV PRN ×2 (08:05→21:10)
--- NOTE | 2017-10-21 10:49 | PDOC PROGRESS REPORT ---
Subjective Progress Note for:: 10/21/17 Subjective:: Patient feels much better, passes flatus and reports much diminshed abdominal pain Reason For Visit: PERFORATION OF INTESTINE Physical Exam Vital Signs: Temp Pulse Resp BP Pulse Ox 98.6 F 69 20 114/65 97 10/21/17 07:59 10/21/17 07:59 10/21/17 07:59 10/21/17 07:59 10/21/17 07:59 General appearance: PRESENT: no acute distress Respiratory exam: PRESENT: clear to auscultation allyssa Cardiovascular exam: PRESENT: RRR GI/Abdominal exam: PRESENT: hypoactive bowel sounds, soft, tenderness - minimal in the LLQ Results Laboratory Results: 10/21/17 06:55 10/21/17 06:55 10/21/17 10/21/17 10/21/17 00:09 00:09 06:55 WBC 14.0 H 11.1 H RBC 4.84 4.64 Hgb 15.0 14.2 Hct 43.7 42.4 MCV 90 91 MCH 30.9 30.6 MCHC 34.2 33.5 RDW 12.9 13.1 Plt Count 197 209 Seg Neutrophils % 76.8 Lymphocytes % 13.9 Monocytes % 8.1 Eosinophils % 0.8 Basophils % 0.4 Absolute Neutrophils 8.6 H Absolute Lymphocytes 1.6 Absolute Monocytes 0.9 Absolute Eosinophils 0.1 Absolute Basophils 0.0 Sodium 137.7 Potassium 3.8 Chloride 103 Carbon Dioxide 23 Anion Gap 12 BUN 12 Creatinine 0.86 Est GFR ( Amer) > 60 Est GFR (Non-Af Amer) > 60 Glucose 73 L Calcium 8.7 10/21/17 06:55 WBC RBC Hgb Hct MCV MCH MCHC RDW Plt Count Seg Neutrophils % Lymphocytes % Monocytes % Eosinophils % Basophils % Absolute Neutrophils Absolute Lymphocytes Absolute Monocytes Absolute Eosinophils Absolute Basophils Sodium 137.4 Potassium 3.6 Chloride 106 Carbon Dioxide 20 L Anion Gap 11 BUN 14 Creatinine 0.95 Est GFR ( Amer) > 60 Est GFR (Non-Af Amer) > 60 Glucose 68 L Calcium 8.5 Impressions: Abdomen/Pelvis CT 10/20/17 18:29 IMPRESSION: Perforated sigmoid diverticulitis without abscess. Free intraperitoneal air. Assessment & Plan - Diagnosis (2) Diverticulitis Qualifiers: Diverticulitis site: large intestine Diverticulitis bleeding: without bleeding Diverticulitis complication: with perforation and without abscess Qualified Code(s): K57.20 - Diverticulitis of large intestine with perforation and abscess without bleeding Is this a current diagnosis for this admission?: Yes - Plan Summary Plan Summary: A/ Perforated sigmoid diverticulitis without abscess or bleeding Small amount of free air noted on CT scan yesterday Patient is currently asymptomatic flatus present VSS, AF WBC normal P/ Continue NPO, IVF Continue Zosyn If patient continues to improve, his diet can be advanced to sips of water and ice chips in AM
[2017-10-21] MEDS: FAMOTIDINE INJ/PF 20 MG/2 ML SDV IV SCH ×2 (10:51→21:16)
[2017-10-21] MEDS: HEPARIN SOD (PORCINE) 5,000 UNIT/ML 1 ML SYRINGE SUBCUT SCH ×2 (10:51→21:16)
[2017-10-22] MEDS: PIPERACILLIN SODIUM/TAZOBACTAM 3.375 GM in NORMAL SALINE 100 ML IV SCH ×4 (02:38→23:31)
[2017-10-22 07:19] LABS: ABSOLUTE EOSINOPHILS # (AUTO) 0.1 10^3/uL (0.0-0.6); ABSOLUTE LYMPHOCYTES (AUTO) 1.7 10^3/uL (0.5-4.7); BASOPHILS % (AUTO) 0.3 % (0-2); HEMATOCRIT 40.4 % (37.9-51.0); LYMPHOCYTES % (AUTO) 15.6 % (13-45); MEAN CORPUSCULAR HEMOGLOBIN 31.4 pg (27.0-33.4); MEAN CORPUSCULAR HGB CONC 34.7 g/dL (32.0-36.0); MEAN CORPUSCULAR VOLUME 91 fl (80-97); PLATELET COUNT 196 10^3/uL (150-450); RED BLOOD COUNT 4.47 10^6/uL (4.35-5.55); RED CELL DISTRIBUTION WIDTH 13.2 % (11.5-14.0); SEGMENTED NEUTROPHILS % (AUTO) 74.1 % (42-78); TOTAL CELLS COUNTED % (AUTO) 100 %; WHITE BLOOD COUNT 10.7 10^3/uL (4.0-10.5)
[2017-10-22 07:41] LABS: ANION GAP 12 (5-19); BLOOD UREA NITROGEN 10 mg/dL (7-20); CALCIUM 8.3 mg/dL (8.4-10.2); CARBON DIOXIDE 15 mmol/L (22-30); CHLORIDE 111 mmol/L (98-107); GLUCOSE 60 mg/dL (75-110); POTASSIUM 3.8 mmol/L (3.6-5.0); SODIUM 137.8 mmol/L (137-145)
[2017-10-22] MEDS: NORMAL SALINE 1000 ML 1,000 ML IV PRN (08:29)
[2017-10-22] MEDS: FAMOTIDINE INJ/PF 20 MG/2 ML SDV IV SCH ×2 (10:03→23:32)
[2017-10-22] MEDS: HEPARIN SOD (PORCINE) 5,000 UNIT/ML 1 ML SYRINGE SUBCUT SCH ×2 (10:03→23:32)
--- NOTE | 2017-10-22 19:07 | PDOC PROGRESS REPORT ---
Subjective Reason For Visit: PERFORATION OF INTESTINE Patient doing well, hospital day 3, for microperforation sigmoid colon; 3 of multiple previous uncomplicated episodes of diverticulitis; no nausea, no pain. Having loose stools. Physical Exam Vital Signs: Temp Pulse Resp BP Pulse Ox 98.1 F 72 17 133/82 H 100 10/22/17 15:23 10/22/17 15:23 10/22/17 15:23 10/22/17 15:23 10/22/17 15:23 Intake & Output 10/21/17 10/22/17 10/23/17 06:59 06:59 06:59 Intake Total 0 Output Total 1 1123 Balance -1911 947 General appearance: PRESENT: no acute distress GI/Abdominal exam: PRESENT: other - Soft, minimally tender left lower quadrant no peritoneal signs no rigidity. Results Laboratory Results: 10/22/17 06:43 10/22/17 06:43 10/22/17 10/22/17 06:43 06:43 WBC 10.7 H RBC 4.47 Hgb 14.0 Hct 40.4 MCV 91 MCH 31.4 MCHC 34.7 RDW 13.2 Plt Count 196 Seg Neutrophils % 74.1 Lymphocytes % 15.6 Monocytes % 9.0 Eosinophils % 1.0 Basophils % 0.3 Absolute Neutrophils 8.0 Absolute Lymphocytes 1.7 Absolute Monocytes 1.0 Absolute Eosinophils 0.1 Absolute Basophils 0.0 Sodium 137.8 Potassium 3.8 Chloride 111 H Carbon Dioxide 15 L Anion Gap 12 BUN 10 Creatinine 0.85 Est GFR ( Amer) > 60 Est GFR (Non-Af Amer) > 60 Glucose 60 L Calcium 8.3 L Impressions: Abdomen/Pelvis CT 10/20/17 18:29 IMPRESSION: Perforated sigmoid diverticulitis without abscess. Free intraperitoneal air. Assessment & Plan - Diagnosis (1) Diverticulitis Qualifiers: Diverticulitis site: large intestine Diverticulitis bleeding: without bleeding Diverticulitis complication: with perforation and without abscess Qualified Code(s): K57.20 - Diverticulitis of large intestine with perforation and abscess without bleeding Is this a current diagnosis for this admission?: Yes Plan: This is hospital day 3, acute sigmoid diverticulitis, Hinchey classification 1, clinically improving, now tolerating sips of clear liquids Recommendations 1. Continue venous Zosyn; will advance diet to clear liquids 2. If patient continues to improve clinically, anticipate discharge home tomorrow on short course of p.o. antibiotics on a diet modification. 3. Patient has had colonoscopy in the past. Will review those records, and make long-term recommendations regarding his recurrent diverticulitis - Time Time Spent with patient: 15-24 minutes
[2017-10-23] MEDS: PIPERACILLIN SODIUM/TAZOBACTAM 3.375 GM in NORMAL SALINE 100 ML IV SCH ×2 (02:45→08:29)
[2017-10-23 07:53] LABS: ABSOLUTE BASOPHILS # (AUTO) 0.1 10^3/uL (0.0-0.2); ABSOLUTE EOSINOPHILS # (AUTO) 0.2 10^3/uL (0.0-0.6); ABSOLUTE LYMPHOCYTES (AUTO) 1.8 10^3/uL (0.5-4.7); ABSOLUTE MONOCYTES (AUTO) 1.2 10^3/uL (0.1-1.4); ABSOLUTE NEUT (AUTO) 8.6 10^3/uL (1.7-8.2); BASOPHILS % (AUTO) 0.6 % (0-2); EOSINOPHILS % (AUTO) 1.3 % (0-6); HEMATOCRIT 40.8 % (37.9-51.0); HEMOGLOBIN 13.9 g/dL (13.5-17.0); MEAN CORPUSCULAR HEMOGLOBIN 30.6 pg (27.0-33.4); MEAN CORPUSCULAR HGB CONC 34.1 g/dL (32.0-36.0); MEAN CORPUSCULAR VOLUME 90 fl (80-97); MONOCYTES % (AUTO) 10.1 % (3-13); PLATELET COUNT 256 10^3/uL (150-450); RED BLOOD COUNT 4.56 10^6/uL (4.35-5.55); RED CELL DISTRIBUTION WIDTH 12.9 % (11.5-14.0); TOTAL CELLS COUNTED % (AUTO) 100 %; WHITE BLOOD COUNT 11.8 10^3/uL (4.0-10.5)
[2017-10-23 08:07] LABS: ANION GAP 11 (5-19); BLOOD UREA NITROGEN 3 mg/dL (7-20); CALCIUM 8.5 mg/dL (8.4-10.2); CARBON DIOXIDE 20 mmol/L (22-30); CHLORIDE 105 mmol/L (98-107); GLUCOSE 75 mg/dL (75-110); POTASSIUM 3.6 mmol/L (3.6-5.0); SODIUM 136.4 mmol/L (137-145)
[2017-10-23] MEDS: KETOROLAC TROMETHAMINE INJ/PF 30 MG/1 ML SDV IV PRN (08:22)
[2017-10-23] MEDS: NORMAL SALINE 1000 ML 1,000 ML IV PRN (08:50)
[2017-10-23] MEDS ORDERED: DOCUSATE SODIUM 100 MG CAPSULE PO SCH (10:00)
[2017-10-23] MEDS: FAMOTIDINE INJ/PF 20 MG/2 ML SDV IV SCH (10:14)
[2017-10-23] MEDS: HEPARIN SOD (PORCINE) 5,000 UNIT/ML 1 ML SYRINGE SUBCUT SCH (10:14)
--- NOTE | 2017-10-23 10:58 | PDOC PROGRESS REPORT ---
Subjective Progress Note for:: 10/23/17 Subjective:: no abdominal pain, tolerating po well Reason For Visit: PERFORATION OF INTESTINE Physical Exam Vital Signs: Temp Pulse Resp BP Pulse Ox 98.6 F 82 16 134/85 H 98 10/23/17 08:21 10/23/17 08:21 10/23/17 08:21 10/23/17 08:21 10/23/17 08:21 Intake & Output 10/22/17 10/23/17 10/24/17 06:59 06:59 06:59 Intake Total 2130 Output Total 1910 1753 Balance -1910 377 Weight 95 kg General appearance: PRESENT: no acute distress Respiratory exam: PRESENT: clear to auscultation allyssa Cardiovascular exam: PRESENT: RRR GI/Abdominal exam: PRESENT: normal bowel sounds, soft Results Laboratory Results: 10/23/17 06:57 10/23/17 06:57 10/23/17 10/23/17 06:57 06:57 WBC 11.8 H RBC 4.56 Hgb 13.9 Hct 40.8 MCV 90 MCH 30.6 MCHC 34.1 RDW 12.9 Plt Count 256 Seg Neutrophils % 73.0 Lymphocytes % 15.0 Monocytes % 10.1 Eosinophils % 1.3 Basophils % 0.6 Absolute Neutrophils 8.6 H Absolute Lymphocytes 1.8 Absolute Monocytes 1.2 Absolute Eosinophils 0.2 Absolute Basophils 0.1 Sodium 136.4 L Potassium 3.6 Chloride 105 Carbon Dioxide 20 L Anion Gap 11 BUN 3 L Creatinine 0.73 Est GFR ( Amer) > 60 Est GFR (Non-Af Amer) > 60 Glucose 75 Calcium 8.5 Impressions: Abdomen/Pelvis CT 10/20/17 18:29 IMPRESSION: Perforated sigmoid diverticulitis without abscess. Free intraperitoneal air. Assessment & Plan - Diagnosis (2) Diverticulitis Qualifiers: Diverticulitis site: large intestine Diverticulitis bleeding: without bleeding Diverticulitis complication: with perforation and without abscess Qualified Code(s): K57.20 - Diverticulitis of large intestine with perforation and abscess without bleeding Is this a current diagnosis for this admission?: Yes - Plan Summary Plan Summary: A/ s/p perforated sigmoid diverticulitis, now resolved No abdominal pain; po tolerated WBC normal abdomen soft P/ Home today F/u with Dr. Bai in 2 weeks to schedule colonoscopy in 3 months Low residue diet only (no vegetables or fibers) x 3 weeks, then reintroduce fibers slowly Miralax or Colace as needed for constipation Levaquin/Flagyl x 7 days Resume activities as tolerated
--- NOTE | 2017-10-23 12:09 | DISCHARGE SUMMARY E ---
Discharge Summary NAME: JUDI CASTRO : 1980 AGE: 37Y ADMITTED: 10/20/2017 DISCHARGED: 10/23/2017 FINAL DIAGNOSIS: Recurrent perforated sigmoid diverticulitis. PROCEDURE: None. COMPLICATIONS: None. HOSPITAL COURSE: This is a 37-year-old healthy male with a history of recurrent perforated sigmoid diverticulitis. The patient presented to the hospital on October 20 with left-sided abdominal pain. CAT scan of abdomen was done revealing the presence of free air in the abdomen a small amount. Most of the free air was into the mesentery of the sigmoid colon. According to the patient's history, this was the third episode of sigmoid diverticulitis with perforation during this past 12 months. The patient was admitted, kept n.p.o. on IV fluids and IV antibiotic Zosyn and the patient progressively improved. On the day of discharge, the patient's vital signs were stable. He is afebrile. Physical exam was unremarkable. The patient's white blood cell count on the day of discharge was 11.8. He was able to tolerate p.o. well. DISCHARGE ORDERS: The patient was discharged home on October 23. Followup in the office with Dr. Bai in about 2 weeks. We will schedule colonoscopy in 3 months. The patient was given Cipro 500 mg p.o. daily for 7 days and Flagyl 500 mg p.o. 3 times a day for 7 days. He was instructed to use Colace or Miralax as needed for constipation. He was instructed to follow a diet with no fibers, vegetables, or fruit for about 3 weeks and to introduce those slowly afterward. Activities as tolerated. DICTATING PHYSICIAN: ROBB BLOUNT M.D. [id number] PHY#: [id number] ID: [id number] JOB#: [id number] ACCT: [id number] cc:ROBB BLOUNT M.D. EPaulino Reed > [facility]
[2017-10-23 13:16] VITALS: BP 132/81
== END 2017-10-23 13:42 | disposition home or self-care (01) | DRG 392 ==
LOC: ER 18:15 → EH 21:55 → 2N 10-21 00:23
PROVIDERS: ADMIT Surgery; ATTEND Surgery
DX: K57.20 Diverticulitis of large intestine with perforation and abscess without bleeding (principal); F17.200 Nicotine dependence, unspecified, uncomplicated; F90.9 Attention-deficit hyperactivity disorder, unspecified type; K21.9 Gastro-esophageal reflux disease without esophagitis; F41.9 Anxiety disorder, unspecified
CPT/HCPCS: 36415; 74177; 80048; 80053; 81001; 83605; 85025; 85027; 85610; 85730; 86850; 86900; 86901; 99285; J1644; J1885; J2270; J2405; J2543; J7030; S0028

== ENCOUNTER 2017-11-30 22:20 | Emergency (ER) | payer OTHER ==
--- NOTE | 2017-12-01 00:39 | ER Document Report ---
ED GI/ - General Chief Complaint: Nausea/Vomiting/Diarrhea Stated Complaint: ABDOMINAL PAIN Time Seen by Provider: 12/01/17 00:35 Notes: The patient is a 37-year-old male, past medical history diverticulitis with perforation earlier this year, presents with worsening left lower quadrant abdominal pain, nausea, vomiting and watery diarrhea since today. Patient denies fevers, blood in stool, hematemesis, urinary symptoms, headache, recent travel or recent antibiotic use. TRAVEL OUTSIDE OF THE [place] IN LAST 30 DAYS: No - Related Data Allergies/Adverse Reactions: No Known Allergies Allergy (Verified 04/10/17 09:59) Past Medical History - General Information source: Patient - Social History Smoking Status: Never Smoker Family History: Reviewed & Not Pertinent Pulmonary Medical History: Reports: Hx Bronchitis Renal/ Medical History: Denies: Hx Peritoneal Dialysis GI Medical History: Reports: Hx Diverticulitis, Hx Gastroesophageal Reflux Disease Musculoskeltal Medical History: Denies Hx Arthritis Psychiatric Medical History: Reports: Hx Anxiety, Hx Attention Deficit Hyperactivity Disorder, Hx Depression Past Surgical History: Reports: Hx Testicular Surgery. Denies: Hx Pacemaker - Immunizations Hx Diphtheria, Pertussis, Tetanus Vaccination: Yes Review of Systems - Review of Systems Notes: REVIEW OF SYSTEMS: CONSTITUTIONAL: -fevers, -chills EENT: -eye pain, -difficulty swallowing, -nasal congestion CARDIOVASCULAR: -chest pain, -syncope. RESPIRATORY: -cough, -SOB GASTROINTESTINAL: +LLQ abdominal pain, +nausea, +vomiting, +diarrhea GENITOURINARY: -dysuria, -hematuria MUSCULOSKELETAL: -back pain, -neck pain SKIN: -rash or skin lesions. HEMATOLOGIC: -easy bruising or bleeding. LYMPHATIC: -swollen, enlarged glands. NEUROLOGICAL: -altered mental status or loss of consciousness, -headache, - neurologic symptoms PSYCHIATRIC: -anxiety, -depression. ALL OTHER SYSTEMS REVIEWED AND NEGATIVE. Physical Exam - Vital signs Vitals: Temp Pulse Resp BP Pulse Ox 99.9 F 95 17 130/82 H 96 11/30/17 22:28 11/30/17 22:28 11/30/17 22:28 11/30/17 22:28 11/30/17 22:28 - Notes Notes: PHYSICAL EXAMINATION: GENERAL: Well-appearing, well-nourished and in no acute distress. HEAD: Atraumatic, normocephalic. EYES: Pupils equal round and reactive to light, extraocular movements intact, sclera anicteric, conjunctiva are normal. ENT: nares patent, oropharynx clear without exudates. Moist mucous membranes. NECK: Normal range of motion, supple without lymphadenopathy LUNGS: Breath sounds clear to auscultation bilaterally and equal. No wheezes rales or rhonchi. HEART: Regular rate and rhythm without murmurs ABDOMEN: Soft, moderate LLQ tenderness, normoactive bowel sounds. No guarding, no rebound. No masses appreciated. EXTREMITIES: Normal range of motion, no pitting or edema. No cyanosis. NEUROLOGICAL: Cranial nerves grossly intact. Normal speech, normal gait. Normal sensory and motor exams. PSYCH: Normal mood, normal affect. SKIN: Warm, Dry, normal turgor, no rashes or lesions noted. Course - Re-evaluation Re-evalutation: Patient appears well. He does have signs of acute diverticulitis and CT abdomen pelvis shows moderate diverticulitis, but no perforation or abscess formation. He would like to go home with outpatient treatment. Instructed him about strict return precautions, especially about perforation, and he understands. He has a colonoscopy scheduled with Dr. Bai next week. - Vital Signs Vital signs: Temp Pulse Resp BP Pulse Ox 99.9 F 95 17 130/82 H 96 11/30/17 22:28 11/30/17 22:28 11/30/17 22:28 11/30/17 22:28 11/30/17 22:28 - Laboratory Result Diagrams: 12/01/17 01:20 12/01/17 01:20 Laboratory results interpreted by me: 12/01/17 12/01/17 01:20 02:27 WBC 19.2 H Seg Neutrophils % 86.2 H Lymphocytes % 6.2 L Absolute Neutrophils 16.6 H Urine Ketones 80 H Urine Blood SMALL H Urine Urobilinogen 4.0 H - Diagnostic Test Radiology reviewed: Image reviewed, Reports reviewed Radiology results interpreted by me: CT A/P: Moderate diverticulitis of the left colon and mid-sigmoid. Adjacent urinary bladder cystitis. No free fluid and no free air. No abscess. Discharge - Discharge Clinical Impression: Acute diverticulitis of intestine Condition: Stable Disposition: HOME, SELF-CARE Additional Instructions: Diverticulitis You have been diagnosed as having diverticulitis. This is an inflammation of a small pouch attached to the colon, called a diverticulum. Many of these small pouches can form on the colon as you get older. They are often caused by constipation. When inflamed or infected, symptoms arise -- usually abdominal pain, constipation or diarrhea, fever, and blood in the stool. Severe diverticulitis may require hospitalization. More mild cases are usually treated with antibiotics and clear liquid diet. As you improve, a diet low in residue (one which forms little stool) is prescribed. When you are better, you should eat a high-fiber diet. Stool softeners ( like Metamucil) are usually recommended. Call the doctor or go to the hospital if there is increasing pain, vomiting , high fever, large amounts of blood passed, or if bowel movements cease. Prescriptions: Ciprofloxacin HCl [Cipro 500 mg Tablet] 500 mg PO BID #27 tablet Hydrocodone/Acetaminophen [[place] 5-325 mg Tablet] 1 tab PO Q6H PRN #10 tablet PRN Reason: Metronidazole [Flagyl 500 mg Tablet] 500 mg PO TID 14 Days tablet Ondansetron [Zofran Odt 4 mg Tablet] 1 - 2 tab PO Q4H PRN #15 tab.rapdis PRN Reason: For Nausea/Vomiting Forms: Elevated Blood Pressure Referrals: CHADWICK BAI MD [ACTIVE STAFF] - Follow up as needed
[2017-12-01] MEDS ORDERED: HYDROMORPHONE HCL INJ/PF 2 MG/ML AMPULE IV ONE (00:56)
[2017-12-01 01:46] LABS: ABSOLUTE LYMPHOCYTES (AUTO) 1.2 10^3/uL (0.5-4.7); ABSOLUTE MONOCYTES (AUTO) 1.4 10^3/uL (0.1-1.4); ABSOLUTE NEUT (AUTO) 16.6 10^3/uL (1.7-8.2); BASOPHILS % (AUTO) 0.3 % (0-2); EOSINOPHILS % (AUTO) 0.1 % (0-6); HEMATOCRIT 42.7 % (37.9-51.0); HEMOGLOBIN 14.8 g/dL (13.5-17.0); LYMPHOCYTES % (AUTO) 6.2 % (13-45); MEAN CORPUSCULAR HEMOGLOBIN 31.1 pg (27.0-33.4); MEAN CORPUSCULAR HGB CONC 34.5 g/dL (32.0-36.0); MEAN CORPUSCULAR VOLUME 90 fl (80-97); MONOCYTES % (AUTO) 7.2 % (3-13); PLATELET COUNT 281 10^3/uL (150-450); RED BLOOD COUNT 4.75 10^6/uL (4.35-5.55); RED CELL DISTRIBUTION WIDTH 13.5 % (11.5-14.0); SEGMENTED NEUTROPHILS % (AUTO) 86.2 % (42-78); TOTAL CELLS COUNTED % (AUTO) 100 %; WHITE BLOOD COUNT 19.2 10^3/uL (4.0-10.5)
[2017-12-01] MEDS ORDERED: METRONIDAZOLE 500 MG/NS RTU 100 ML IV ONE (01:48)
[2017-12-01] MEDS ORDERED: CIPROFLOXACIN 400 MG/D5W RTU 400 MG/200 ML RTUPB IV SCH (02:00)
[2017-12-01 02:03] LABS: ALANINE AMINOTRANSFERASE 25 U/L (21-72); ALBUMIN 4.2 g/dL (3.5-5.0); ALKALINE PHOSPHATASE 63 U/L (38-126); ANION GAP 15 (5-19); ASPARTATE AMINO TRANSFERASE 18 U/L (17-59); BILIRUBIN,DIRECT 0.3 mg/dL (0.0-0.4); BILIRUBIN,TOTAL 0.8 mg/dL (0.2-1.3); BLOOD UREA NITROGEN 15 mg/dL (7-20); CALCIUM 9.4 mg/dL (8.4-10.2); CARBON DIOXIDE 23 mmol/L (22-30); CHLORIDE 104 mmol/L (98-107); GLUCOSE 95 mg/dL (75-110); POTASSIUM 4.1 mmol/L (3.6-5.0); SODIUM 142.3 mmol/L (137-145); TOTAL PROTEIN 6.8 g/dL (6.3-8.2)
[2017-12-01 03:00] LABS: APPEARANCE,URINE CLEAR; BILIRUBIN,URINE NEGATIVE (NEGATIVE); COLOR,URINE YELLOW; GLUCOSE, URINE NEGATIVE (NEGATIVE); KETONES,URINE 80 mg/dL (NEGATIVE); LEUKOCYTE ESTERASE,URINE NEGATIVE (NEGATIVE); NITRITE,URINE NEGATIVE (NEGATIVE); PROTEIN,URINE NEGATIVE (NEGATIVE); URINE SPECIFIC GRAVITY 1.023
--- NOTE | 2017-12-01 03:22 | RADIOLOGY REPORT (SQ) ---
EXAM DESCRIPTION: CT ABD/PELVIS WITH IV ONLY CLINICAL HISTORY: 37 years Male, LLQ pain, Hx perforated diverticulitis COMPARISON: . 9.5.17, report only. TECHNIQUE: IV contrast. Coronal and sagittal reformat. This exam was performed according to our departmental dose-optimization program, which includes automated exposure control, adjustment of the mA and/or kV according to patient size and/or use of iterative reconstruction technique. FINDINGS: Moderate diverticulitis of the distal left colon and mid sigmoid. There is an inflamed 3.4 cm diverticulum extending between the sigmoid and urinary bladder in the anterior mid pelvis, image 72 series 3. Moderate diffuse urinary bladder wall thickening with mild adjacent fat inflammation. No gas bubbles are seen within the urinary bladder so there is no indirect evidence of fistula at this time. Moderate fat inflammation surrounds the distal left colon associated with a second discontinuous area of diverticulitis. Minimal dependent atelectasis of bilateral lower lobes. 1.7 cm likely benign right renal cyst. 0.8 cm uncomplicated left renal stone. Normal appendix. No free fluid and no free air. Enostosis of the right proximal femur. Inferior thorax, liver, gallbladder, pancreas, spleen, adrenals, lymphatics, vasculature, and musculoskeleton appear otherwise unremarkable. IMPRESSION: Moderate diverticulitis of the left colon and mid-sigmoid. Adjacent urinary bladder cystitis. No free fluid and no free air. No abscess.
[2017-12-01] MEDS ORDERED: ONDANSETRON ODT 4 MG TAB (6 TAB/ER DISP) PO PRN (03:48)
[2017-12-01] MEDS ORDERED: HYDROCODONE/ACETAMINOPHEN 5-325 MG (6 TAB/ER DISP) PO PRN (03:48)
[2017-12-01 04:55] VITALS: BP 124/78
== END 2017-12-01 04:55 | disposition home or self-care (01) ==
LOC: ER 22:20
DX: K57.92 Diverticulitis of intestine, part unspecified, without perforation or abscess without bleeding (principal); R11.2 Nausea with vomiting, unspecified; R19.7 Diarrhea, unspecified; R10.32 Left lower quadrant pain
CPT/HCPCS: 99284; 96375; 96365; 96368; 36415; 85025; 80053; 81001; 74177; J1170; J0744

== ENCOUNTER 2018-01-02 09:30 | Inpatient (IN) | payer OTHER ==
[2018-01-02] MEDS ORDERED: ONDANSETRON HCL INJ/PF 4 MG/2 ML SDV IM ONE (09:39)
[2018-01-02] MEDS ORDERED: PROMETHAZINE HCL INJ 50 MG/1 ML VIAL IM ONE (09:42)
[2018-01-02] MEDS ORDERED: DICYCLOMINE HCL INJ 20 MG/2 ML AMPULE IM ONE (09:43)
[2018-01-02] MEDS ORDERED: NORMAL SALINE 1000 ML 1,000 ML IV ONE (09:45)
[2018-01-02] MEDS ORDERED: NORMAL SALINE 1000 ML 1,000 ML IV PRN (09:45)
--- NOTE | 2018-01-02 09:47 | ER Document Report ---
ED Medical Screen (RME) - General Chief Complaint: Vomiting Stated Complaint: VOMITING BLOOD Time Seen by Provider: 01/02/18 09:41 Notes: 37 years old male with a history of cannabis use, was smoking cannabis. Woke up this morning with nausea vomiting in the vomitus contained streaks of blood. He has been raching , while nauseous and tried to vomit. Diffuse abdominal pain. No diarrhea but been on and off constipated. Denies any fever chills or other constitutional symptoms. I have greeted and performed a rapid initial assessment of this patient. A comprehensive ED assessment and evaluation of the patient, analysis of test results and completion of the medical decision making process will be conducted by additional ED providers. PHYSICAL EXAMINATION: GENERAL: Well-appearing, well-nourished and mild to moderate acute distress. HEAD: Atraumatic, normocephalic. EYES: Pupils equal round extraocular movements intact, conjunctiva are normal. ENT: Nares patent NECK: Normal range of motion LUNGS: No respiratory distress Musculoskeletal: Normal range of motion NEUROLOGICAL: Normal speech, normal gait. PSYCH: Normal mood, normal affect. SKIN: Warm, Dry, normal turgor, no rashes or lesions noted. TRAVEL OUTSIDE OF THE [place] IN LAST 30 DAYS: No - Related Data Allergies/Adverse Reactions: No Known Allergies Allergy (Verified 01/02/18 09:31) Past Medical History Pulmonary Medical History: Reports: Hx Bronchitis Renal/ Medical History: Denies: Hx Peritoneal Dialysis GI Medical History: Reports: Hx Diverticulitis, Hx Gastroesophageal Reflux Disease Musculoskeltal Medical History: Denies Hx Arthritis Psychiatric Medical History: Reports: Hx Anxiety, Hx Attention Deficit Hyperactivity Disorder, Hx Depression Past Surgical History: Reports: Hx Testicular Surgery. Denies: Hx Pacemaker - Immunizations Hx Diphtheria, Pertussis, Tetanus Vaccination: Yes History of Influenza Vaccine for 05/2017 - 10/2017 Season: Refused Physical Exam - Vital signs Vitals: Temp Pulse Resp BP Pulse Ox 97.7 F 78 16 134/90 H 99 01/02/18 09:33 01/02/18 09:33 01/02/18 09:33 01/02/18 09:33 01/02/18 09:33 Course - Vital Signs Vital signs: Temp Pulse Resp BP Pulse Ox 97.7 F 78 16 134/90 H 99 01/02/18 09:33 01/02/18 09:33 01/02/18 09:33 01/02/18 09:33 01/02/18 09:33
--- NOTE | 2018-01-02 10:12 | ER Document Report ---
ED General - General Chief Complaint: Vomiting Stated Complaint: VOMITING BLOOD Time Seen by Provider: 01/02/18 09:41 Mode of Arrival: Ambulatory Information source: Patient Notes: 37-year-old gentleman with past medical history of GERD, gastritis, diverticulitis who presented today for evaluation of nausea, vomiting that started last night. According to patient he had multiple episodes of emesis now associated with hematemesis. Patient denies any prior history of alcohol abuse or prior history of liver disease. Patient does not take any blood anticoagulation medication. Patient has associated bloody stools today. Pain has abdominal pain associated with his symptoms, upper abdominal, no radiation, severity of symptoms is 8 out of 10. TRAVEL OUTSIDE OF THE [place] IN LAST 30 DAYS: No - Related Data Allergies/Adverse Reactions: No Known Allergies Allergy (Verified 01/02/18 09:31) Past Medical History - General Information source: Patient - Social History Smoking Status: Current Every Day Smoker Chew tobacco use (# tins/day): No Frequency of alcohol use: Rare Drug Abuse: Marijuana Family History: Reviewed & Not Pertinent Patient has suicidal ideation: No Patient has homicidal ideation: No Pulmonary Medical History: Reports: Hx Bronchitis Renal/ Medical History: Denies: Hx Peritoneal Dialysis GI Medical History: Reports: Hx Diverticulitis, Hx Gastroesophageal Reflux Disease Musculoskeltal Medical History: Denies Hx Arthritis Psychiatric Medical History: Reports: Hx Anxiety, Hx Attention Deficit Hyperactivity Disorder, Hx Depression Past Surgical History: Reports: Hx Orthopedic Surgery - L ankle, Hx Testicular Surgery. Denies: Hx Pacemaker - Immunizations Hx Diphtheria, Pertussis, Tetanus Vaccination: Yes Review of Systems - Review of Systems Notes: REVIEW OF SYSTEMS: CONSTITUTIONAL: -fevers, -chills, + generalized fatigue EENT: -eye pain, -difficulty swallowing, -nasal congestion CARDIOVASCULAR: -chest pain, -syncope. RESPIRATORY: -cough, -SOB GASTROINTESTINAL: + Abdominal pain, + nausea, + vomiting, + diarrhea, + hematemesis GENITOURINARY: -dysuria, -hematuria MUSCULOSKELETAL: -back pain, -neck pain SKIN: -rash or skin lesions. HEMATOLOGIC: -easy bruising or bleeding. LYMPHATIC: -swollen, enlarged glands. NEUROLOGICAL: -altered mental status or loss of consciousness, -headache, - neurologic symptoms PSYCHIATRIC: -anxiety, -depression. ALL OTHER SYSTEMS REVIEWED AND NEGATIVE. Physical Exam - Vital signs Vitals: Temp Pulse Resp BP Pulse Ox 97.7 F 78 16 134/90 H 99 01/02/18 09:33 01/02/18 09:33 01/02/18 09:33 01/02/18 09:33 01/02/18 09:33 - Notes Notes: Reviewed vital signs and nursing note as charted by RN. CONSTITUTIONAL: Alert and oriented and responds appropriately to questions HEAD: Normocephalic; atraumatic EYES: PERRL; Conjunctivae pale, sclerae non-icteric ENT: normal nose; no rhinorrhea; moist mucous membranes; pharynx without lesions noted NECK: Supple without meningismus; non-tender; no cervical lymphadenopathy, no masses CARD: Regular rate and rhythm; no murmurs, no clicks, no rubs, no gallops; symmetric distal pulses RESP: Normal chest excursion without splinting or tachypnea; breath sounds clear and equal bilaterally ABD/GI: Hyperactive bowel sounds; non-distended; soft, generalized tenderness to palpation with mild guarding, no rebound BACK: back appears normal and is non-tender to palpation EXT: Normal ROM in all joints; non-tender to palpation; no cyanosis, no effusions, no edema SKIN: Skin is pale NEURO: Cranial nerves 3-12 intact. Motor strength 5/5 bilaterally. Sensation intact to touch bilaterally. No pronator drift. Finger to nose intact bilaterally PSYCH: The patient's mood and manner are appropriate. Grooming and personal hygiene are appropriate. Course - Re-evaluation Re-evalutation: 37-year-old male here for evaluation of nausea, vomiting as well as hematemesis Patient has associated abdominal pain Patient has recent history of diverticulosis as well as diverticulitis Differential diagnosis at this time includes small bowel obstruction, small bowel perforation, intra-abdominal abscess or infection, dehydration, GI bleeding, anemia, malignancy, kidney stone, acute cystitis, DKA We will obtain basic lab work including CBC, CMP, lipase, urinalysis Type and screen CT scan of abdomen and pelvis Continue with IV fluids, IV antiemetics Reassess patient 01/02/18 10:29 KUB revealed possible kidney stone, will obtain CT scan of his abdomen and pelvis to rule out acute intra-abdominal injuries or possible perforation versus kidney stone 01/02/18 12:40 CT scan consistent with intra-abdominal abscess between the bladder as well as the colon measuring 3 cm in size No evidence of perforation Patient has left kidney stone without any obstruction, normal kidney function today General surgery was consulted, case was discussed with Dr. Vazquez, agree with admission, IV Zosyn as well as admission Admit patient to surgery - Vital Signs Vital signs: Temp Pulse Resp BP Pulse Ox 97.7 F 78 16 134/90 H 99 01/02/18 09:33 01/02/18 09:33 01/02/18 09:33 01/02/18 09:33 01/02/18 09:33 - Laboratory Result Diagrams: 01/02/18 09:58 01/02/18 09:58 Laboratory results interpreted by me: 01/02/18 01/02/18 01/02/18 09:58 09:58 09:58 WBC 13.0 H Seg Neutrophils % 85.9 H Lymphocytes % 8.9 L Absolute Neutrophils 11.2 H Potassium 5.2 H Glucose 134 H Calcium 10.4 H Ammonia < 8.7 L Urine Protein Urine Ketones Urine Blood 01/02/18 11:35 WBC Seg Neutrophils % Lymphocytes % Absolute Neutrophils Potassium Glucose Calcium Ammonia Urine Protein 30 H Urine Ketones 80 H Urine Blood MODERATE H - Diagnostic Test Radiology reviewed: Image reviewed - EXAM DESCRIPTION: CT ABD/PELVIS WITH IV ONLY COMPLETED DATE/TIME: 01/02/2018 11:26 am REASON FOR STUDY: kidney stone vs bowel perforation COMPARISON: CT abdomen pelvis 12/01/2017, 10/10/2017, 2016, 09/21/2015 TECHNIQUE: CT scan of the abdomen and pelvis performed using helical scanning technique with dynamic intravenous contrast injection. No oral contrast. Images reviewed with lung, soft tissue, and bone windows. Reconstructed coronal and sagittal MPR images reviewed. Delayed images for evaluation of the urinary system also acquired. All images stored on PACS. All CT scanners at this facility use dose modulation, iterative reconstruction, and/ or weight based dosing when appropriate to reduce radiation dose to as low as reasonably achievable (ALARA). [facility]: Dose Right [facility]: CareDose [facility]: Dose Right [facility]: Teradose 4D [facility]: SocMetrics CONTRAST TYPE AND DOSE: contrast/ concentration: Isovue 370.00 mg/ml; Total Contrast Delivered: 88.0 ml; Total Saline Delivered: 41.0 ml RENAL FUNCTION: None required. The patient is less than 50 years old. RADIATION DOSE: CT Rad equipment meets quality standard of care and radiation dose reduction techniques were employed. CTDIvol: 7.6 - 10.7 mGy. DLP: 983 mGy-cm.. LIMITATIONS: None. FINDINGS: A 3.5 cm transverse x 3.1 cm AP x 3.3 cm craniocaudad abscess is present between the distal descending/proximal sigmoid colon and bladder dome. This is likely a diverticular abscess. There is thickening of the bladder dome wall, without air in the urinary bladder. LOWER CHEST: No significant findings. No nodules or infiltrates. LIVER: Normal size. No masses. No dilated ducts. SPLEEN: Normal size. No focal lesions. PANCREAS: No masses. No significant calcifications. No adjacent inflammation or peripancreatic fluid collections. Pancreatic duct not dilated. GALLBLADDER: No identified stones by CT criteria. No inflammatory changes to suggest cholecystitis. ADRENAL GLANDS: No significant masses or asymmetry. RIGHT KIDNEY AND URETER: No solid masses. Benign focal cortical scarring right upper pole kidney. No significant calcifications. No hydronephrosis or hydroureter. LEFT KIDNEY AND URETER: No solid masses. 8 to 9 mm stone in the left renal pelvis, 1,022 Hounsfield units , best shown on axial image 31 and coronal image 50. This has changed position since prior CT 12/01/2017 where it was in the lower pole collecting system. No hydronephrosis or hydroureter. AORTA AND VESSELS: No aneurysm. No dissection. Renal arteries, SMA, celiac without stenosis. RETROPERITONEUM: No retroperitoneal adenopathy, hemorrhage or masses. BOWEL AND PERITONEAL CAVITY: Abscess has developed between the distal descending/ sigmoid colon and bladder dome as above. No CT evidence of bowel obstruction or free intraperitoneal air or fluid. There is chronic appearing scarring along the lateral aspect of the descending colon on coronal images 38-42. APPENDIX: Normal. PELVIS: Diverticular as above. No air in the urinary bladder to suggest colovesical fistula. However the bladder dome is abnormally thickened with contrast enhancement. No pelvic adenopathy. ABDOMINAL WALL: Tiny fat containing umbilical hernia BONES: No significant or acute findings. OTHER: No other significant finding. IMPRESSION: 3.5 x 3.1 x 3.3 cm diverticular abscess between colon and bladder dome. Bladder dome thickening without air in the bladder to suggest colovesical fistula 8 to 9 mm stone in the left renal pelvis , has shifted out of the lower pole left kidney since 2017. Currently nonobstructive. TECHNICAL DOCUMENTATION: JOB ID: [id number] Quality ID # [id number]: Final reports with documentation of one or more dose reduction techniques (e.g. , Automated exposure control, adjustment of the mA and/or kV according to patient size, use of iterative reconstruction technique) 2010 [employer]- All Rights Reserved Reading location - IP/workstation name: [facility]-2 Dictated by: HEMAL CANTOR MD [id number] CC: HEIDI FISHER MD Discharge - Discharge Clinical Impression: Colonic diverticular abscess, Kidney stone on left side Nausea and vomiting Qualifiers: Vomiting type: unspecified Vomiting Intractability: non-intractable Qualified Code(s): R11.2 - Nausea with vomiting, unspecified Condition: Stable Disposition: ADMITTED INPATIENT Admitting Provider: Surgicalist Unit Admitted: Surgical Floor
[2018-01-02 10:17] LABS: ABSOLUTE LYMPHOCYTES (AUTO) 1.2 10^3/uL (0.5-4.7); ABSOLUTE MONOCYTES (AUTO) 0.6 10^3/uL (0.1-1.4); ABSOLUTE NEUT (AUTO) 11.2 10^3/uL (1.7-8.2); BASOPHILS % (AUTO) 0.2 % (0-2); EOSINOPHILS % (AUTO) 0.1 % (0-6); HEMATOCRIT 45.2 % (37.9-51.0); HEMOGLOBIN 15.4 g/dL (13.5-17.0); LYMPHOCYTES % (AUTO) 8.9 % (13-45); MEAN CORPUSCULAR HEMOGLOBIN 30.8 pg (27.0-33.4); MEAN CORPUSCULAR VOLUME 91 fl (80-97); MONOCYTES % (AUTO) 4.9 % (3-13); PLATELET COUNT 399 10^3/uL (150-450); RED BLOOD COUNT 4.99 10^6/uL (4.35-5.55); RED CELL DISTRIBUTION WIDTH 13.1 % (11.5-14.0); SEGMENTED NEUTROPHILS % (AUTO) 85.9 % (42-78); TOTAL CELLS COUNTED % (AUTO) 100 %
--- NOTE | 2018-01-02 10:21 | RADIOLOGY REPORT (SQ) ---
EXAM DESCRIPTION: ACUTE ABDOMEN SERIES COMPLETED DATE/TIME: 01/02/2018 10:09 am REASON FOR STUDY: Abdominal pain COMPARISON: Abdomen films 09/25/2015, 09/22/2015, CT abdomen pelvis 04/10/2017, 10/20/2017, 12/01/2017 NUMBER OF VIEWS: Three views. TECHNIQUE: Frontal chest, supine abdomen and upright abdomen radiographic images acquired. LIMITATIONS: None. FINDINGS: CHEST: Lungs clear of infiltrates. Cardiac silhouette size, john, bony structures unremar kable. FREE AIR: None. No abnormal gas collections. BOWEL GAS PATTERN: Nonobstructive pattern. No dilated loops or air fluid levels. CALCIFICATIONS: An 8 mm calculus is present at the expected location left ureteral pelvic junction. This has moved out of the left lower pole kidney as seen on CT 12/01/2017. This report was called to Dr. Palomino in the emergency room. HARDWARE: None in the abdomen. SOFT TISSUES: No gross mass or suggestion of organomegaly. BONES: No acute fracture. No worrisome bone lesions. OTHER: No other significant finding. IMPRESSION: 8 mm calculus at the left ureteral pelvic junction Grossly nonobstructive bowel gas pattern. No subdiaphragmatic free air. No focal infiltrates TECHNICAL DOCUMENTATION: JOB ID: [id number] [employer]- All Rights Reserved Reading location - IP/workstation name: [email or web address]
[2018-01-02] MEDS ORDERED: HYDROMORPHONE HCL INJ/PF 2 MG/ML AMPULE IV ONE (10:30)
[2018-01-02 10:55] LABS: ALANINE AMINOTRANSFERASE 23 U/L (21-72); ALBUMIN 4.7 g/dL (3.5-5.0); ALKALINE PHOSPHATASE 72 U/L (38-126); ANION GAP 18 (5-19); ASPARTATE AMINO TRANSFERASE 18 U/L (17-59); BILIRUBIN,DIRECT 0.4 mg/dL (0.0-0.4); BILIRUBIN,TOTAL 0.7 mg/dL (0.2-1.3); BLOOD UREA NITROGEN 15 mg/dL (7-20); CALCIUM 10.4 mg/dL (8.4-10.2); CARBON DIOXIDE 24 mmol/L (22-30); CHLORIDE 102 mmol/L (98-107); GLUCOSE 134 mg/dL (75-110); LIPASE 23.7 U/L (23-300); POTASSIUM 5.2 mmol/L (3.6-5.0); SODIUM 143.6 mmol/L (137-145)
--- NOTE | 2018-01-02 11:48 | RADIOLOGY REPORT (SQ) ---
EXAM DESCRIPTION: CT ABD/PELVIS WITH IV ONLY COMPLETED DATE/TIME: 01/02/2018 11:26 am REASON FOR STUDY: kidney stone vs bowel perforation COMPARISON: CT abdomen pelvis 12/01/2017, 10/10/2017, 04/10/2017, 09/21/2015 TECHNIQUE: CT scan of the abdomen and pelvis performed using helical scanning technique with dynamic intravenous contrast injection. No oral contrast. Images reviewed with lung, soft tissue, and bone windows. Reconstructed coronal and sagittal MPR images reviewed. Delayed images for evaluation of the urinary system also acquired. All images stored on PACS. All CT scanners at this facility use dose modulation, iterative reconstruction, and/or weight based d osing when appropriate to reduce radiation dose to as low as reasonably achievable (ALARA). [facility]: Dose Right [facility]: CareDose [facility]: Dose Right [facility]: Teradose 4D [facility]: [employer] CONTRAST TYPE AND DOSE: contrast/concentration: Isovue 370.00 mg/ml; Total Contrast Delivered: 88.0 ml; Total Saline Delivered: 41.0 ml RENAL FUNCTION: None required. The patient is less than 50 years old. RADIATION DOSE: CT Rad equipment meets quality standard of care and radiation dose reduction techniq ues were employed. CTDIvol: 7.6 - 10.7 mGy. DLP: 983 mGy-cm.. LIMITATIONS: None. FINDINGS: A 3.5 cm transverse x 3.1 cm AP x 3.3 cm craniocaudad abscess is present between the dista l descending/proximal sigmoid colon and bladder dome. This is likely a diverticular abscess. There is thickening of the bladder dome wall, without air in the urinary bladder. LOWER CHEST: No significant findings. No nodules or infiltrates. LIVER: Normal size. No masses. No dilated ducts. SPLEEN: Normal size. No focal lesions. PANCREAS: No masses. No significant calcifications. No adjacent inflammation or peripancreatic fluid collections. Pancreatic duct not dilated. GALLBLADDER: No identified stones by CT criteria. No inflammatory changes to suggest cholecystitis. ADRENAL GLANDS: No significant masses or asymmetry. RIGHT KIDNEY AND URETER: No solid masses. Benign focal cortical scarring right upper pole kidney. N o significant calcifications. No hydronephrosis or hydroureter. LEFT KIDNEY AND URETER: No solid masses. 8 to 9 mm stone in the left renal pelvis, 1,022 Hounsfield units, best shown on axial image 31 and coronal image 50. This has changed position since prior CT 12/01/2017 where it was in the lower pole collecting system. No hydronephrosis or hydroureter. AORTA AND VESSELS: No aneurysm. No dissection. Renal arteries, SMA, celiac without stenosis. RETROPERITONEUM: No retroperitoneal adenopathy, hemorrhage or masses. BOWEL AND PERITONEAL CAVITY: Abscess has developed between the distal descending/ sigmoid colon and b ladder dome as above. No CT evidence of bowel obstruction or free intraperitoneal air or fluid. The re is chronic appearing scarring along the lateral aspect of the descending colon on coronal images 3 8-42. APPENDIX: Normal. PELVIS: Diverticular as above. No air in the urinary bladder to suggest colovesical fistula. Howeve r the bladder dome is abnormally thickened with contrast enhancement. No pelvic adenopathy. ABDOMINAL WALL: Tiny fat containing umbilical hernia BONES: No significant or acute findings. OTHER: No other significant finding. IMPRESSION: 3.5 x 3.1 x 3.3 cm diverticular abscess between colon and bladder dome. Bladder dome th ickening without air in the bladder to suggest colovesical fistula 8 to 9 mm stone in the left renal pelvis, has shifted out of the lower pole left kidney since 12/02/19 18. Currently nonobstructive. TECHNICAL DOCUMENTATION: JOB ID: [id number] Quality ID # [id number]: Final reports with documentation of one or more dose reduction techniques (e.g., Au tomated exposure control, adjustment of the mA and/or kV according to patient size, use of iterative reconstruction technique) 2010 [employer]- All Rights Reserved Reading location - IP/workstation name: [id number]
[2018-01-02 12:02] LABS: APPEARANCE,URINE SLIGHTLY-CLOUDY; BILIRUBIN,URINE NEGATIVE (NEGATIVE); COLOR,URINE YELLOW; GLUCOSE, URINE NEGATIVE (NEGATIVE); KETONES,URINE 80 mg/dL (NEGATIVE); LEUKOCYTE ESTERASE,URINE NEGATIVE (NEGATIVE); NITRITE,URINE NEGATIVE (NEGATIVE); PROTEIN,URINE 30 mg/dL (NEGATIVE); URINE SPECIFIC GRAVITY 1.021; UROBILINOGEN,URINE NEGATIVE mg/dL (<2.0)
[2018-01-02 12:21] LABS: URINE AMPHETAMINES SCREEN NEGATIVE; URINE BARBITURATES SCREEN NEGATIVE; URINE BENZODIAZEPINES SCREEN NEGATIVE; URINE COCAINE SCREEN NEGATIVE; URINE MARIJUANA (THC) SCREEN UNCONFIRMED POSITIVE; URINE METHADONE SCREEN NEGATIVE; URINE PHENCYCLIDINE SCREEN NEGATIVE
[2018-01-02] MEDS ORDERED: PIPERACILLIN/TAZOBACTAM 3.375 GM VIAL IV ONE (12:31)
--- NOTE | 2018-01-02 13:58 | PDOC H&P ---
History of Present Illness Admission Date/PCP: 01/02/18 12:59 Patient complains of: Supra pubic and left lower quadrant pains for about 2 weeks History of Present Illness: JUDI CASTRO is a 37 year old male who had 2-3 previous episodes of sigmoid dverticulitis treated non-operatively, c/o lower abdominal pains past 2 weeks worse when he voids. He has a left uretero pelvic stone about [address] scan as well as a3x3 cm sigmoid diverticular abscess. Has seen Dr Bai in the office and supposed to have a colonoscopy January. Past Medical History Pulmonary Medical History: Reports: Bronchitis GI Medical History: Reports: Diverticulitis, Gastroesophageal Reflux Disease Musculoskeltal Medical History: Denies: Arthritis Psychiatric Medical History: Reports: Attention Deficit Hyperactivity Disorder, Depression Hematology: Denies: Anemia Past Surgical History Past Surgical History: Reports: Orthopedic Surgery - L ankle, Other - sigmoid diverticulitis Denies: Pacemaker Social History Smoking Status: Current Every Day Smoker Frequency of Alcohol Use: Social Hx Recreational Drug Use: Yes Drugs: Marijuana Family History Family History: Reviewed & Not Pertinent Parental Family History Reviewed: Yes Children Family History Reviewed: No Sibling(s) Family History Reviewed.: No Medication/Allergy Home Medications: Celecoxib [Celebrex 200 mg Capsule] 200 mg PO DAILY 10/21/17 Cetirizine HCl [Zyrtec 10 mg Tablet] 10 mg PO DAILY 10/21/17 Cholecalciferol (Vitamin D3) [Vitamin D3 1000 Unit Tablet] 1,000 unit PO DAILY 10/21/17 Sildenafil Citrate [Viagra] 100 mg PO ASDIR PRN 10/21/17 Sucralfate [Carafate 1 gm Tablet] 1 gm PO ACHS 10/21/17 Lactobacillus Acidophilus [Acidophilus Lactobacilli] 1 each PO BID 01/02/18 Metoclopramide HCl [Reglan] 5 mg PO ACHS 01/02/18 Sumatriptan Succinate [Imitrex 50 mg Tablet] 50 mg PO DAILYP PRN MDD 200MG PER DAY 01/02/18 Allergies/Adverse Reactions: No Known Allergies Allergy (Verified 01/02/18 14:56) Review of Systems Constitutional: PRESENT: other - denies fever/chills Eyes: PRESENT: other - no visual/hearingchanges Cardiovascular: PRESENT: other - no chest pains Respiratory: PRESENT: other - Had coughing spells and now c/o blood in sputum since yesterday. Hematologic/Lymphatic: PRESENT: other - no easy brusing Physical Exam Vital Signs: Temp Pulse Resp BP Pulse Ox 97.7 F 78 16 134/90 H 99 01/02/18 09:33 01/02/18 09:33 01/02/18 09:33 01/02/18 09:33 01/02/18 09:33 General appearance: PRESENT: mild distress Head exam: PRESENT: atraumatic Eye exam: PRESENT: conjunctiva pink Mouth exam: PRESENT: moist, tongue midline Neck exam: PRESENT: full ROM Respiratory exam: PRESENT: clear to auscultation allyssa Cardiovascular exam: PRESENT: RRR Pulses: PRESENT: normal radial pulses Vascular exam: PRESENT: normal capillary refill GI/Abdominal exam: PRESENT: soft, tenderness - supra-pubic and LLQ. No rebound Rectal exam: PRESENT: deferred Extremities exam: PRESENT: full ROM Musculoskeletal exam: PRESENT: ambulatory Neurological exam: PRESENT: alert, awake, oriented to person, oriented to place , oriented to situation Psychiatric exam: PRESENT: appropriate affect Results Impressions: Acute Abdomen Series 01/02/18 09:44 IMPRESSION: 8 mm calculus at the left ureteral pelvic junction Grossly nonobstructive bowel gas pattern. No subdiaphragmatic free air. No focal infiltrates Abdomen/Pelvis CT 01/02/18 10:23 IMPRESSION: 3.5 x 3.1 x 3.3 cm diverticular abscess between colon and bladder dome. Bladder dome thickening without air in the bladder to suggest colovesical fistula 8 to 9 mm stone in the left renal pelvis, has shifted out of the lower pole left kidney since 12/01/2017. Currently nonobstructive. Assessment & Plan - Diagnosis (1) Colonic diverticular abscess Is this a current diagnosis for this admission?: Yes (2) Kidney stone on left side Is this a current diagnosis for this admission?: Yes - Time Time Spent: 30 to 50 Minutes - Inpatient Certification Medical Necessity: Need For IV Fluids, Need for Pain Control, Need for IV Antibiotics, Need for Surgery, Risk of Complication if Not Cared For in Hospital - Plan Summary Plan Summary: Keep NPO Continue hydration IV antibiotics Serial exam
[2018-01-02] MEDS: PIPERACILLIN SODIUM/TAZOBACTAM 3.375 GM in NORMAL SALINE 100 ML IV SCH ×2 (16:43→23:54)
[2018-01-02] MEDS: MORPHINE SULFATE 10 MG/ML INJ IV PRN (16:51)
[2018-01-02] MEDS: ONDANSETRON HCL INJ/PF 4 MG/2 ML SDV IV PRN (16:52)
[2018-01-02] MEDS: NORMAL SALINE 1000 ML 1,000 ML IV PRN (23:54)
[2018-01-03] MEDS: PIPERACILLIN SODIUM/TAZOBACTAM 3.375 GM in NORMAL SALINE 100 ML IV SCH ×4 (06:26→23:36)
[2018-01-03] MEDS: MORPHINE SULFATE 10 MG/ML INJ IV PRN ×4 (06:35→20:31)
[2018-01-03] MEDS: ONDANSETRON HCL INJ/PF 4 MG/2 ML SDV IV PRN ×3 (06:42→20:31)
[2018-01-03] MEDS: NORMAL SALINE 1000 ML 1,000 ML IV PRN ×2 (10:28→20:08)
--- NOTE | 2018-01-03 12:40 | PDOC PROGRESS REPORT ---
Subjective Progress Note for:: 01/03/18 Subjective:: more pains lower left pelvic area this am Reason For Visit: ACUTE SIGMOID DIVERTICULITIS WT A CONTAINED Physical Exam Vital Signs: Temp Pulse Resp BP Pulse Ox 98.1 F 58 L 16 129/84 H 97 01/03/18 11:43 01/03/18 11:43 01/03/18 11:43 01/03/18 11:43 01/03/18 11:43 Intake & Output 01/02/18 01/03/18 01/04/18 06:59 06:59 06:59 Intake Total 1100 450 Balance 1100 450 Weight 81.2 kg Exam: Abd soft with tenderness LLQ/pelvis Results Impressions: Acute Abdomen Series 01/02/18 09:44 IMPRESSION: 8 mm calculus at the left ureteral pelvic junction Grossly nonobstructive bowel gas pattern. No subdiaphragmatic free air. No focal infiltrates Abdomen/Pelvis CT 01/02/18 10:23 IMPRESSION: 3.5 x 3.1 x 3.3 cm diverticular abscess between colon and bladder dome. Bladder dome thickening without air in the bladder to suggest colovesical fistula 8 to 9 mm stone in the left renal pelvis, has shifted out of the lower pole left kidney since 12/01/2017. Currently nonobstructive. Assessment & Plan - Diagnosis (1) Colonic diverticular abscess Is this a current diagnosis for this admission?: Yes (2) Kidney stone on left side Is this a current diagnosis for this admission?: Yes - Time Time Spent with patient: 15-24 minutes - Plan Summary Plan Summary: D/W IR For placement of drainage catheter today
[2018-01-03 12:54] LABS: INTERNATIONAL RATION (INR) 0.94; PROTHROMBIN TIME 13.1 SEC (11.4-15.4)
[2018-01-03 12:55] LABS: PARTIAL THROMBOPLASTIN TIME 35.4 SEC (23.5-35.8)
[2018-01-03] MEDS ORDERED: LIDOCAINE 1% INJ-PF (10 MG/ML) 30 ML SDV ONE (13:21)
[2018-01-03] MEDS ORDERED: MIDAZOLAM 2 MG/2 ML INJ ONE (13:21)
[2018-01-03] MEDS ORDERED: FENTANYL CITRATE INJ/PF 100 MCG/2 ML AMPUL ONE ×2 (13:21→13:58)
[2018-01-03] MEDS: ACETAMINOPHEN 325 MG TABLET PO PRN (16:06)
--- NOTE | 2018-01-03 17:24 | RADIOLOGY REPORT (SQ) ---
EXAM DESCRIPTION: CT GUIDED PERCUT DRAIN W/CATH COMPLETED DATE/TIME: 01/03/2018 2:49 pm REASON FOR STUDY: drain of abcess in pelvis COMPARISON: CT ABDOMEN PELVIS 12/01/2017, 01/02/2018 TECHNIQUE: After obtaining informed consent and explaining the risks and benefits of conscious sedat ion,the patient agreed to the procedure. The patient was brought to the CT suite and was placed supine on the CT gurney. The patient was prepp ed and draped in the usual sterile fashion . Axial images were obtained for targeting of thepelvic d iverticular abscess between the sigmoid colon and bladder dome.. An appropriate access site was selec fiona. IV conscious sedation was administered and physician direction by the registered nurse using 2 millig becca of Versed and 150 micrograms of fentanyl. Physiologic monitoring was provided before, during, an d after sedation. The total sedation time was 40 minutes. Documentation face to face time, the performing proceduralist, spent monitoring the patient: 15minute s. Noncontrasted CT of the liver was performed to localize an approach for the pelvic diverticular absc ess drainage. A percutaneous site was marked. Time out was performed. After skin prep and local lidocaine for skin and deep tissue anesthesia, a 7 cm 18 gauge needle was used access the pelvic diverticular abscess. Prompt return of foul-smelling purulent material, specim ens sent to the lab for Gram stain culture and sensitivity. A 0.38 guidewire was placed through the n eedle into the abscess, the tract was dilated with a 10 Portuguese dilator, a 10 Portuguese locking pigtail c atheter was placed, with the pigtail loop in the abscess cavity. Catheter was secured to the patient' s skin, catheter was placed to a vacuum accordion suction bag. No immediate postprocedure complicatio ns. Total of 4.[address] fluoro was used. 27 CT Fluoroscopic images were obtained and saved to PACS. All CT scanners at this facility use dose modulation, iterative reconstruction, and/or weight based d osing when appropriate to reduce radiation dose to as low as reasonably achievable (ALARA). [facility]: Dose Right [facility]: CareDose [facility]: Dose Right [facility]: Teradose 4D [facility]: [employer] RADIATION DOSE: CT Rad equipment meets quality standard of care and radiation dose reduction techniq ues were employed. CTDIvol: 4.0 - 17.4 mGy. DLP: 815 mGy-cm. mGy. LIMITATIONS: None. FINDINGS: CT guided pelvic diverticular abscess drainage with 10 Portuguese locking pigtail catheter and IV conscious sedation IMPRESSION: CT GUIDED PELVIC DIVERTICULAR ABSCESS DRAINAGE WITH 10 GE[place]GIAN LOCKING PIGTAIL CATHETER. IV CONSCIOUS SEDATION. CULTURES ARE PENDING. NO IMMEDIATE COMPLICATIONS. COMMENT: Patient medication list reviewed:Yes- Quality ID# [id number]:Eligible professional attests to docu menting in the medical record they obtained, updated, or reviewed the patient's current medications.. Quality ID [id number]: Final reports for procedures using fluoroscopy that document radiation exposure olvin josh, or exposure time and number of fluorographic images (if radiation exposure indices are not avail able) TECHNICAL DOCUMENTATION: JOB ID: [id number] Quality ID # [id number]: Final reports with documentation of one or more dose reduction techniques (e.g., A utomated exposure control, adjustment of the mA and/or kV according to patient size, use of iterative reconstruction technique) 2010 [employer]- All Rights Reserved Reading location - IP/workstation name: [email or web address]
[2018-01-04] MEDS: MORPHINE SULFATE 10 MG/ML INJ IV PRN ×4 (00:05→20:00)
[2018-01-04] MEDS: PIPERACILLIN SODIUM/TAZOBACTAM 3.375 GM in NORMAL SALINE 100 ML IV SCH ×3 (05:09→18:56)
[2018-01-04] MEDS: NORMAL SALINE 1000 ML 1,000 ML IV PRN ×3 (05:12→20:01)
[2018-01-04 06:23] LABS: ABSOLUTE BASOPHILS # (AUTO) 0.1 10^3/uL (0.0-0.2); ABSOLUTE EOSINOPHILS # (AUTO) 0.1 10^3/uL (0.0-0.6); ABSOLUTE LYMPHOCYTES (AUTO) 1.8 10^3/uL (0.5-4.7); ABSOLUTE MONOCYTES (AUTO) 1.2 10^3/uL (0.1-1.4); ABSOLUTE NEUT (AUTO) 10.2 10^3/uL (1.7-8.2); BASOPHILS % (AUTO) 0.6 % (0-2); EOSINOPHILS % (AUTO) 0.7 % (0-6); HEMATOCRIT 39.4 % (37.9-51.0); LYMPHOCYTES % (AUTO) 13.3 % (13-45); MEAN CORPUSCULAR HEMOGLOBIN 30.4 pg (27.0-33.4); MEAN CORPUSCULAR HGB CONC 33.8 g/dL (32.0-36.0); MEAN CORPUSCULAR VOLUME 90 fl (80-97); MONOCYTES % (AUTO) 8.8 % (3-13); PLATELET COUNT 306 10^3/uL (150-450); RED BLOOD COUNT 4.38 10^6/uL (4.35-5.55); SEGMENTED NEUTROPHILS % (AUTO) 76.6 % (42-78); TOTAL CELLS COUNTED % (AUTO) 100 %; WHITE BLOOD COUNT 13.3 10^3/uL (4.0-10.5)
[2018-01-04 06:40] LABS: HEMOGLOBIN 13.3 g/dL (13.5-17.0)
[2018-01-04] MEDS ORDERED: SUMATRIPTAN SUCCINATE 25 MG TABLET PO PRN (17:00)
--- NOTE | 2018-01-04 18:12 | PDOC PROGRESS REPORT ---
Subjective Progress Note for:: 01/04/18 Subjective:: This is a 37-year-old male status post percutaneous drainage of an intra- abdominal abscess for complicated diverticulitis. Patient reports that his pain is improving. He is feeling hungry. He denies nausea, vomiting, fevers, chills, chest pain, shortness of breath, dizziness, blurry vision, malaise, or fatigue. Reason For Visit: ACUTE SIGMOID DIVERTICULITIS WT A CONTAINED Physical Exam Vital Signs: Temp Pulse Resp BP Pulse Ox 98.2 F 69 16 133/88 H 98 01/04/18 11:58 01/04/18 11:58 01/04/18 11:58 01/04/18 11:58 01/04/18 11:58 Intake & Output 01/03/18 01/04/18 01/05/18 06:59 06:59 06:59 Intake Total 1100 1950 Output Total 540 700 Balance 1100 1410 -700 Weight 81.2 kg 81.1 kg General appearance: PRESENT: no acute distress Head exam: PRESENT: atraumatic, normocephalic Eye exam: PRESENT: EOMI, PERRLA. ABSENT: scleral icterus Mouth exam: PRESENT: moist, neck supple Neck exam: ABSENT: lymphadenopathy, meningismus, tenderness, thyromegaly, tracheal deviation Respiratory exam: PRESENT: clear to auscultation allyssa, unlabored. ABSENT: rhonchi, tachypnea, wheezes Cardiovascular exam: PRESENT: RRR Pulses: PRESENT: normal radial pulses Vascular exam: PRESENT: normal capillary refill. ABSENT: pallor GI/Abdominal exam: PRESENT: soft, tenderness - Mild left lower quadrant and prepubic tenderness. ABSENT: distended, firm, guarding Extremities exam: ABSENT: clubbing Neurological exam: PRESENT: alert, awake, oriented to person, oriented to place , oriented to time, oriented to situation, CN II-XII grossly intact. ABSENT: motor sensory deficit Psychiatric exam: ABSENT: agitated, anxious, depressed Skin exam: ABSENT: cyanosis, erythema, jaundice, pallor Results Laboratory Results: 01/04/18 06:01 01/04/18 06:01 WBC 13.3 H RBC 4.38 Hgb 13.3 L D Hct 39.4 MCV 90 MCH 30.4 MCHC 33.8 RDW 13.0 Plt Count 306 Seg Neutrophils % 76.6 Lymphocytes % 13.3 Monocytes % 8.8 Eosinophils % 0.7 Basophils % 0.6 Absolute Neutrophils 10.2 H Absolute Lymphocytes 1.8 Absolute Monocytes 1.2 Absolute Eosinophils 0.1 Absolute Basophils 0.1 Impressions: Acute Abdomen Series 01/02/18 09:44 IMPRESSION: 8 mm calculus at the left ureteral pelvic junction Grossly nonobstructive bowel gas pattern. No subdiaphragmatic free air. No focal infiltrates Abdomen/Pelvis CT 01/02/18 10:23 IMPRESSION: 3.5 x 3.1 x 3.3 cm diverticular abscess between colon and bladder dome. Bladder dome thickening without air in the bladder to suggest colovesical fistula 8 to 9 mm stone in the left renal pelvis, has shifted out of the lower pole left kidney since 12/01/2017. Currently nonobstructive. Percutaneous Drainage 01/03/18 00:00 IMPRESSION: CT GUIDED PELVIC DIVERTICULAR ABSCESS DRAINAGE WITH [address] HELENIAN LOCKING PIGTAIL CATHETER. IV CONSCIOUS SEDATION. CULTURES ARE PENDING. NO IMMEDIATE COMPLICATIONS. Assessment & Plan - Diagnosis (1) Colonic diverticular abscess Is this a current diagnosis for this admission?: Yes - Plan Summary Plan Summary: This is a 37-year-old male status post percutaneous drainage of a diverticular abscess. Patient appears to be doing well. He is tolerating liquids. The patient's drainage bulb will not hold suction. I will investigate this, and discuss with radiology. I will monitor this for now. Drain output is serosanguineous. Continue antibiotics.
[2018-01-04] MEDS: SUMATRIPTAN SUCCINATE 50 MG TABLET PO PRN (18:56)
[2018-01-04] MEDS: ONDANSETRON HCL INJ/PF 4 MG/2 ML SDV IV PRN (19:45)
[2018-01-05] MEDS: PIPERACILLIN SODIUM/TAZOBACTAM 3.375 GM in NORMAL SALINE 100 ML IV SCH ×5 (00:19→23:10)
[2018-01-05] MEDS ORDERED: DIPHENHYDRAMINE HCL 50 MG/ML VIAL INJ ONE (00:45)
[2018-01-05 05:28] LABS: ABSOLUTE BASOPHILS # (AUTO) 0.1 10^3/uL (0.0-0.2); ABSOLUTE EOSINOPHILS # (AUTO) 0.2 10^3/uL (0.0-0.6); ABSOLUTE LYMPHOCYTES (AUTO) 2.6 10^3/uL (0.5-4.7); ABSOLUTE MONOCYTES (AUTO) 1.1 10^3/uL (0.1-1.4); ABSOLUTE NEUT (AUTO) 7.1 10^3/uL (1.7-8.2); BASOPHILS % (AUTO) 0.6 % (0-2); EOSINOPHILS % (AUTO) 1.7 % (0-6); HEMATOCRIT 39.2 % (37.9-51.0); HEMOGLOBIN 13.4 g/dL (13.5-17.0); LYMPHOCYTES % (AUTO) 23.3 % (13-45); MEAN CORPUSCULAR HEMOGLOBIN 30.9 pg (27.0-33.4); MEAN CORPUSCULAR HGB CONC 34.2 g/dL (32.0-36.0); MEAN CORPUSCULAR VOLUME 91 fl (80-97); MONOCYTES % (AUTO) 10.2 % (3-13); PLATELET COUNT 375 10^3/uL (150-450); RED BLOOD COUNT 4.33 10^6/uL (4.35-5.55); RED CELL DISTRIBUTION WIDTH 13.1 % (11.5-14.0); SEGMENTED NEUTROPHILS % (AUTO) 64.2 % (42-78); TOTAL CELLS COUNTED % (AUTO) 100 %; WHITE BLOOD COUNT 11.1 10^3/uL (4.0-10.5)
[2018-01-05 06:04] LABS: ANION GAP 12 (5-19); BLOOD UREA NITROGEN 4 mg/dL (7-20); CARBON DIOXIDE 24 mmol/L (22-30); CHLORIDE 102 mmol/L (98-107); GLUCOSE 70 mg/dL (75-110); POTASSIUM 3.8 mmol/L (3.6-5.0); SODIUM 137.9 mmol/L (137-145)
[2018-01-05] MEDS: MORPHINE SULFATE 10 MG/ML INJ IV PRN ×3 (08:12→20:59)
--- NOTE | 2018-01-05 14:55 | PDOC PROGRESS REPORT ---
Subjective Progress Note for:: 01/05/18 Subjective:: LLQ pains Able to void better without "pressure" on his bladder Reason For Visit: ACUTE SIGMOID DIVERTICULITIS WT A CONTAINED Physical Exam Vital Signs: Temp Pulse Resp BP Pulse Ox 98.1 F 71 18 121/69 100 01/05/18 11:51 01/05/18 11:51 01/05/18 11:51 01/05/18 11:51 01/05/18 11:51 Intake & Output 01/04/18 01/05/18 01/06/18 06:59 06:59 06:59 Intake Total 1950 1900 Output Total 540 2500 Balance 1410 -600 Weight 81.1 kg 82.4 kg Exam: Abd is soft with tenderness along cath insertion site on the LLQ Insertion site no redness or swelling Results Laboratory Results: 01/05/18 04:09 01/05/18 04:09 01/05/18 01/05/18 04:09 04:09 WBC 11.1 H RBC 4.33 L Hgb 13.4 L Hct 39.2 MCV 91 MCH 30.9 MCHC 34.2 RDW 13.1 Plt Count 375 Seg Neutrophils % 64.2 Lymphocytes % 23.3 Monocytes % 10.2 Eosinophils % 1.7 Basophils % 0.6 Absolute Neutrophils 7.1 Absolute Lymphocytes 2.6 Absolute Monocytes 1.1 Absolute Eosinophils 0.2 Absolute Basophils 0.1 Sodium 137.9 Potassium 3.8 Chloride 102 Carbon Dioxide 24 Anion Gap 12 BUN 4 L Creatinine 0.80 Est GFR ( Amer) > 60 Est GFR (Non-Af Amer) > 60 Glucose 70 L Calcium 9.0 Impressions: Acute Abdomen Series 01/02/18 09:44 IMPRESSION: 8 mm calculus at the left ureteral pelvic junction Grossly nonobstructive bowel gas pattern. No subdiaphragmatic free air. No focal infiltrates Abdomen/Pelvis CT 01/02/18 10:23 IMPRESSION: 3.5 x 3.1 x 3.3 cm diverticular abscess between colon and bladder dome. Bladder dome thickening without air in the bladder to suggest colovesical fistula 8 to 9 mm stone in the left renal pelvis, has shifted out of the lower pole left kidney since 12/01/2017. Currently nonobstructive. Percutaneous Drainage 01/03/18 00:00 IMPRESSION: CT GUIDED PELVIC DIVERTICULAR ABSCESS DRAINAGE WITH 10 YI LOCKING PIGTAIL CATHETER. IV CONSCIOUS SEDATION. CULTURES ARE PENDING. NO IMMEDIATE COMPLICATIONS. Assessment & Plan - Diagnosis (1) Colonic diverticular abscess Is this a current diagnosis for this admission?: Yes (2) Kidney stone on left side Is this a current diagnosis for this admission?: Yes - Time Time Spent with patient: 15-24 minutes - Plan Summary Plan Summary: Gradually increase po intake Continue IV antibiotics
[2018-01-05] MEDS: SUMATRIPTAN SUCCINATE 50 MG TABLET PO PRN (23:15)
[2018-01-06] MEDS: PIPERACILLIN SODIUM/TAZOBACTAM 3.375 GM in NORMAL SALINE 100 ML IV SCH ×4 (05:39→23:37)
[2018-01-06 07:10] LABS: ABSOLUTE BASOPHILS # (AUTO) 0.1 10^3/uL (0.0-0.2); ABSOLUTE EOSINOPHILS # (AUTO) 0.3 10^3/uL (0.0-0.6); ABSOLUTE LYMPHOCYTES (AUTO) 2.2 10^3/uL (0.5-4.7); ABSOLUTE MONOCYTES (AUTO) 0.8 10^3/uL (0.1-1.4); ABSOLUTE NEUT (AUTO) 5.3 10^3/uL (1.7-8.2); BASOPHILS % (AUTO) 0.8 % (0-2); EOSINOPHILS % (AUTO) 3.3 % (0-6); HEMATOCRIT 40.2 % (37.9-51.0); HEMOGLOBIN 13.9 g/dL (13.5-17.0); LYMPHOCYTES % (AUTO) 25.1 % (13-45); MEAN CORPUSCULAR HEMOGLOBIN 31.1 pg (27.0-33.4); MEAN CORPUSCULAR HGB CONC 34.5 g/dL (32.0-36.0); MEAN CORPUSCULAR VOLUME 90 fl (80-97); MONOCYTES % (AUTO) 9.3 % (3-13); PLATELET COUNT 368 10^3/uL (150-450); RED BLOOD COUNT 4.47 10^6/uL (4.35-5.55); SEGMENTED NEUTROPHILS % (AUTO) 61.5 % (42-78); TOTAL CELLS COUNTED % (AUTO) 100 %; WHITE BLOOD COUNT 8.6 10^3/uL (4.0-10.5)
[2018-01-06] MEDS: MORPHINE SULFATE 10 MG/ML INJ IV PRN ×3 (09:13→22:31)
[2018-01-06] MEDS: NORMAL SALINE 1000 ML 1,000 ML IV PRN (09:53)
--- NOTE | 2018-01-06 21:55 | PDOC PROGRESS REPORT ---
Subjective Progress Note for:: 01/06/18 Subjective:: Much less LLQ pains Reason For Visit: ACUTE SIGMOID DIVERTICULITIS WT A CONTAINED Physical Exam Vital Signs: Temp Pulse Resp BP Pulse Ox 98.5 F 72 16 124/71 98 01/06/18 15:00 01/06/18 15:00 01/06/18 15:00 01/06/18 15:00 01/06/18 15:00 Intake & Output 01/05/18 01/06/18 01/07/18 06:59 06:59 06:59 Intake Total 1900 1300 2160 Output Total 2500 1050 1600 Balance -600 250 560 Weight 82.4 kg Exam: abd is soft with mild LLQ pains Drainage catheter in place Results Laboratory Results: 01/06/18 06:43 01/05/18 04:09 01/06/18 06:43 WBC 8.6 RBC 4.47 Hgb 13.9 Hct 40.2 MCV 90 MCH 31.1 MCHC 34.5 RDW 13.0 Plt Count 368 Seg Neutrophils % 61.5 Lymphocytes % 25.1 Monocytes % 9.3 Eosinophils % 3.3 Basophils % 0.8 Absolute Neutrophils 5.3 Absolute Lymphocytes 2.2 Absolute Monocytes 0.8 Absolute Eosinophils 0.3 Absolute Basophils 0.1 Impressions: Acute Abdomen Series 01/02/18 09:44 IMPRESSION: 8 mm calculus at the left ureteral pelvic junction Grossly nonobstructive bowel gas pattern. No subdiaphragmatic free air. No focal infiltrates Abdomen/Pelvis CT 01/02/18 10:23 IMPRESSION: 3.5 x 3.1 x 3.3 cm diverticular abscess between colon and bladder dome. Bladder dome thickening without air in the bladder to suggest colovesical fistula 8 to 9 mm stone in the left renal pelvis, has shifted out of the lower pole left kidney since 12/01/2017. Currently nonobstructive. Percutaneous Drainage 01/03/18 00:00 IMPRESSION: CT GUIDED PELVIC DIVERTICULAR ABSCESS DRAINAGE WITH 10 PUERTO RICAN LOCKING PIGTAIL CATHETER. IV CONSCIOUS SEDATION. CULTURES ARE PENDING. NO IMMEDIATE COMPLICATIONS. Assessment & Plan - Diagnosis (1) Colonic diverticular abscess Is this a current diagnosis for this admission?: Yes (2) Kidney stone on left side Is this a current diagnosis for this admission?: Yes - Time Time Spent with patient: 15-24 minutes - Plan Summary Plan Summary: Continue IV antibiotics Increase diet in am if remains stable
[2018-01-06] MEDS: ONDANSETRON HCL INJ/PF 4 MG/2 ML SDV IV PRN (22:31)
[2018-01-06] MEDS ORDERED: SUMATRIPTAN SUCCINATE 100 MG TABLET ONE (23:01)
[2018-01-07] MEDS: PIPERACILLIN SODIUM/TAZOBACTAM 3.375 GM in NORMAL SALINE 100 ML IV SCH ×3 (06:43→17:50)
[2018-01-07] MEDS: ACETAMINOPHEN 325 MG TABLET PO PRN (07:53)
[2018-01-07] MEDS: SUMATRIPTAN SUCCINATE 50 MG TABLET PO PRN (07:55)
[2018-01-07] MEDS: MORPHINE SULFATE 10 MG/ML INJ IV PRN (08:37)
[2018-01-07] MEDS ORDERED: KETOROLAC TROMETHAMINE 10 MG TABLET PO PRN (08:48)
[2018-01-07] MEDS: DOCUSATE SODIUM 100 MG CAPSULE PO SCH ×2 (11:19→17:49)
--- NOTE | 2018-01-07 12:18 | PDOC PROGRESS REPORT ---
Subjective Subjective:: No complaints; feels much better; having bowel function: No difficulties voiding Reason For Visit: ACUTE SIGMOID DIVERTICULITIS WT A CONTAINED Physical Exam Vital Signs: Temp Pulse Resp BP Pulse Ox 97.6 F 55 L 16 113/76 98 01/07/18 08:03 01/07/18 08:03 01/07/18 08:03 01/07/18 08:03 01/07/18 08:03 Intake & Output 01/06/18 01/07/18 01/08/18 06:59 06:59 06:59 Intake Total 1300 2160 Output Total 1050 2750 Balance 250 -590 Weight 84.6 kg General appearance: PRESENT: no acute distress GI/Abdominal exam: PRESENT: other - Abdomen soft virtually no abdominal tenderness; drain with minimal output; drain not being flushed Results Laboratory Results: 01/06/18 06:43 01/05/18 04:09 01/03/18 14:20 Diverticular Gram Stain - Final 01/03/18 14:20 Diverticular Body Fluid Culture - Final Streptococcus Mitis No Anaerobic Organisms Impressions: Acute Abdomen Series 01/02/18 09:44 IMPRESSION: 8 mm calculus at the left ureteral pelvic junction Grossly nonobstructive bowel gas pattern. No subdiaphragmatic free air. No focal infiltrates Abdomen/Pelvis CT 01/02/18 10:23 IMPRESSION: 3.5 x 3.1 x 3.3 cm diverticular abscess between colon and bladder dome. Bladder dome thickening without air in the bladder to suggest colovesical fistula 8 to 9 mm stone in the left renal pelvis, has shifted out of the lower pole left kidney since 12/01/2017. Currently nonobstructive. Percutaneous Drainage 01/03/18 00:00 IMPRESSION: CT GUIDED PELVIC DIVERTICULAR ABSCESS DRAINAGE WITH 10 KENYAN LOCKING PIGTAIL CATHETER. IV CONSCIOUS SEDATION. CULTURES ARE PENDING. NO IMMEDIATE COMPLICATIONS. Assessment & Plan - Diagnosis (1) Diverticulitis Qualifiers: Diverticulitis site: large intestine Diverticulitis bleeding: without bleeding Diverticulitis complication: with perforation and without abscess Qualified Code(s): K57.20 - Diverticulitis of large intestine with perforation and abscess without bleeding Is this a current diagnosis for this admission?: Yes Plan: Pericolonic abscess, Hinchey classification 1, status post percutaneous drainage with successful evacuation of abscess cavity; tolerating diet Recommendations: 1. Will initiate flushes drain daily proximally and distally. 2. Patient may shower 3. Anticipate discharge home tomorrow on p.o. antibiotics. Patient growing Streptococcus mitis
[2018-01-07] MEDS: OXYCODONE-ACETAMINOPHEN 5-325 MG TABLET PO PRN ×2 (16:22→22:22)
[2018-01-08] MEDS: PIPERACILLIN SODIUM/TAZOBACTAM 3.375 GM in NORMAL SALINE 100 ML IV SCH ×3 (00:17→12:09)
[2018-01-08] MEDS: NORMAL SALINE 1000 ML 1,000 ML IV PRN (05:04)
[2018-01-08 09:19] VITALS: BP 120/82
[2018-01-08] MEDS: DOCUSATE SODIUM 100 MG CAPSULE PO SCH (12:09)
--- NOTE | 2018-01-09 05:10 | DISCHARGE SUMMARY E ---
Discharge Summary NAME: JUDI CASTRO : 1980 AGE: 37Y ADMITTED: 01/02/2018 DISCHARGED: 01/08/2018 FINAL DIAGNOSIS: Diverticular abscess. PROCEDURE DONE: Percutaneous drainage of diverticular abscess 01/03/[address] Peng. HOSPITAL COURSE: This is a 37-year-old male with recurrent diverticulitis. This is about the third or fourth episode in the past 2 years. Both earlier times were treated conservatively. This time the patient came in with left lower quadrant pains, and a CAT scan of the abdomen showed a diverticular abscess about 3 x 3 cm. The abscess noted to be close to the bladder and the patient has severe pains whenever he voids. Because of this, Dr. Peng the next day, 01/03/18, placed a percutaneous drainage catheter to the diverticular abscess. The patient postdrainage felt a lot better with easier voiding, without much discomfort. He continued to have some flatus and then eventually had a bowel movement. He was then started on clears and increased to soft diet. The patient able to be discharged on 01/03/18 and placed on p.o. Cipro and Flagyl. The patient also given a prescription for Percocet. DISCHARGE INSTRUCTIONS: The patient to continue with his soft diet and to be followed up in the surgical clinic in a week for possible removal of the drain. DICTATING PHYSICIAN: BARB SORIANO M.D. [id number] PHY#: [id number] ID: [id number] JOB#: [id number] ACCT: [id number] cc:BARB SORIANO M.D. [facility],
== END 2018-01-08 13:16 | disposition home or self-care (01) | DRG 392 ==
LOC: ER 09:30 → EH 12:59 → 4N 14:45 → 2N 01-04 00:40
PROVIDERS: ADMIT Surgery; ATTEND Surgery
PROC: 0J9C30Z Drainage of Pelvic Region Subcutaneous Tissue and Fascia with Drainage Device, Percutaneous Approach (ICD-10-PCS; principal; 2018-01-03)
DX: K57.20 Diverticulitis of large intestine with perforation and abscess without bleeding (principal); K21.9 Gastro-esophageal reflux disease without esophagitis; N20.0 Calculus of kidney; K29.70 Gastritis, unspecified, without bleeding; R11.2 Nausea with vomiting, unspecified; F12.90 Cannabis use, unspecified, uncomplicated; F17.210 Nicotine dependence, cigarettes, uncomplicated
CPT/HCPCS: 36415; 74022; 74177; 75989; 80048; 80076; 80307; 81001; 82140; 82272; 83690; 85025; 85610; 85730; 87070; 87075; 87077; 87205; 96361; 96372; 96374; 99285; C1729; C1769; C1894; J0500; J1170; J1200; J2250; J2270; J2405; J2543; J2550; J3010; J3490; J7030

== ENCOUNTER 2018-01-23 11:20 | Day surgery (SDC) | payer OTHER ==
[~2018-01-23 11:20] MED LIST: ACETAMINOPHEN 325 MG TABLET PO PRN; LACTATED RINGERS 1000 ML IV PRN; LIDOCAINE 0.5% INJ-PF (5 MG/ML) 50 ML SDV SUBCUT PRN; RINGERS SOLUTION,LACTATED 1,000 ML IV PRN
[2018-01-23] MEDS ORDERED: MEPERIDINE HCL/PF INJ 25 MG/1 ML DISP.SYRIN IV PRN (13:12)
[2018-01-23] MEDS ORDERED: FENTANYL CITRATE INJ/PF 100 MCG/2 ML AMPUL IV PRN ×3 (13:12)
[2018-01-23] MEDS ORDERED: PROMETHAZINE HCL INJ 25 MG/1 ML VIAL IV PRN ×2 (13:12)
[2018-01-23] MEDS ORDERED: DIPHENHYDRAMINE HCL 50 MG/ML VIAL IV PRN (13:12)
--- NOTE | 2018-01-23 13:14 | Operative Report ---
Operative Report DATE OF SURGERY: 01/23/18 PREOPERATIVE DIAGNOSIS: Hx of diverticulitis, sigmoid colon, recurrent episodes POSTOPERATIVE DIAGNOSIS: Same with scattered diverticulosis sigmoid colon; rare right sided diverticular disease OPERATION: Total colonoscopy to cecum with photodocumentation SURGEON: CHADIWCK HUTSON ANESTHESIA: LMAC TISSUE REMOVED OR ALTERED: none COMPLICATIONS: none ESTIMATED BLOOD LOSS: scant INTRAOPERATIVE FINDINGS: See below PROCEDURE: Obtaining informed consent the patient was taken from the preoperative holding area to the main endoscopy suite where monitoring devices were attached to the patient. Plan and surgical timeout were conducted The patient was placed in the left lateral decubitus position with knees to chest. A perianal examination was performed. There was no visible or palpable anorectal pathology. Sphincter tone was felt to be normal. The flexible adult colonoscope was advanced through the anal rectal canal, all the way to the cecum. Visualization of the cecum was achieved and the ileocecal valve, the appendiceal orifice and transillumination of the anterior abdominal wall. This was an excellent study on the well-prepped bowel. The colonoscope was withdrawn slowly and methodically checked and the mucosa carefully. There was no evidence of tumor, stricture, bleeding or polyp. There is scattered diverticulosis of sigmoid colon; however no evidence of stricture polyp tumor bleeding. There are also a few diverticula ascending colon. The scope was slowly withdrawn through the anal rectal canal. Complete visualization of the rectum was achieved with photodocumentation. The scope was withdrawn to the patient's anus. The patient tolerated the procedure well and was taken to the recovery area in stable condition. Per surveillance guidelines, we recommend follow-up colonoscopy in 10 years.
--- NOTE | 2018-01-23 13:15 | Discharge Summary ---
Discharge Summary (SDC) - Discharge Final Diagnosis: screening colonoscopy Date of Surgery: 01/23/18 Discharge Date: 01/23/18 Condition: Stable Treatment or Instructions: DIET: Start with clear liquid and progress to normal diet. FOLLOW UP: You may experience loose stool after the procedure. Follow up at [facility] in [address] Bai. Call clinic sooner with questions/concerns. Referrals: CITLALLI BAL NP [Primary Care Provider] - Discharge Diet: Other (Comments) - clear liquids then progress to regular diet Discharge Activity: Activity As Tolerated Report the Following to Your Physician Immediately: Nausea, Vomiting, Increase in Pain, Fever over 101 Degrees, Unusual Bleeding, Increased Soreness
[2018-01-23] MEDS ORDERED: PROPOFOL INJ 200 MG/20 ML VIAL IV ONE (13:18)
[2018-01-23 15:27] VITALS: BP 113/81
== END 2018-01-23 14:50 | disposition home or self-care (01) ==
LOC: OROUT 11:20
PROVIDERS: ATTEND Surgery
DX: K57.30 Diverticulosis of large intestine without perforation or abscess without bleeding (principal); K21.9 Gastro-esophageal reflux disease without esophagitis; M19.90 Unspecified osteoarthritis, unspecified site; G43.909 Migraine, unspecified, not intractable, without status migrainosus; F17.210 Nicotine dependence, cigarettes, uncomplicated; G47.30 Sleep apnea, unspecified; F12.90 Cannabis use, unspecified, uncomplicated; Z79.899 Other long term (current) drug therapy
CPT/HCPCS: 45378; J2704; 811

== ENCOUNTER 2019-05-04 09:18 | Emergency (ER) | payer OTHER ==
[2019-05-04] MEDS ORDERED: LIDOCAINE 2% VISCOUS SOLN 20 ML UDCUP PO ONE (10:10)
--- NOTE | 2019-05-04 10:25 | ER Document Report ---
HPI - HPI Time Seen by Provider: 05/04/19 10:09 Pain Level: 4 Notes: Patient is a 39-year-old male with no significant past medical history who presents complaining of dental pain to #13 and #19 approximately over the past several hours. He has not noticed any obvious abscess or purulent discharge. Patient states that he is still able to eat and drink, but does have a decreased p.o. intake due to the pain. He has tried some [id number] meds with minimal relief. No other concerns or complaints. Denies any headache, fever, head injury, neck pain, hoarseness, drooling, URI, sore throat, chest pain, palpitations, syncope, cough, shortness of breath, wheeze, dyspnea, abdominal pain, nausea/vomiting/diarrhea, urinary retention, dysuria, hematuria, or rash. - ROS Systems Reviewed and Negative: Yes All other systems reviewed and negative Past Medical History - Social History Smoking Status: Former Smoker Chew tobacco use (# tins/day): No Frequency of alcohol use: None Drug Abuse: Marijuana Family History: Reviewed & Not Pertinent Patient has suicidal ideation: No Patient has homicidal ideation: No Pulmonary Medical History: Reports: Hx Bronchitis Renal/ Medical History: Denies: Hx Peritoneal Dialysis GI Medical History: Reports: Hx Diverticulitis, Hx Gastroesophageal Reflux Disease Musculoskeletal Medical History: Reports Hx Arthritis - RA Psychiatric Medical History: Reports: Hx Anxiety, Hx Attention Deficit Hyperactivity Disorder, Hx Depression Past Surgical History: Reports: Hx Orthopedic Surgery - L ankle, Hx Testicular Surgery, Other - sigmoid diverticulitis. Denies: Hx Pacemaker - Immunizations Hx Diphtheria, Pertussis, Tetanus Vaccination: Yes Vertical Provider Document - CONSTITUTIONAL Agree With Documented VS: Yes Notes: PHYSICAL EXAMINATION: GENERAL: Well-appearing, well-nourished and in no acute distress. HEAD: Atraumatic, normocephalic. EYES: Pupils equal round and reactive to light, extraocular movements intact, sclera anicteric, conjunctiva are normal. ENT: Nares patent and without discharge. oropharynx clear without exudates. No tonsilar hypertrophy or erythema. Moist mucous membranes. No sinus tenderness. Uvula midline. No palatine shift. No tongue protrusion. No respiratory compromise. Mouth: Poor dentition. + severe decay and mild gingivitis. No obvious abscess or discharge noted. No facial swelling. + tenderness to tooth #19/13. NECK: Normal range of motion, supple without lymphadenopathy. No rigidity/meningismus. LUNGS: Breath sounds clear to auscultation bilaterally and equal. No wheezes rales or rhonchi. HEART: Regular rate and rhythm without murmurs, rubs, gallops. NEUROLOGICAL: Cranial nerves grossly intact. Normal speech, normal gait. PSYCH: Normal mood, normal affect. SKIN: Warm, Dry, normal turgor, no rashes or lesions noted. - INFECTION CONTROL TRAVEL OUTSIDE OF THE [place] IN LAST 30 DAYS: No Course - Re-evaluation Re-evalutation: 05/04/19 10:24 Patient is an afebrile, well-hydrated, 39-year-old male who presents to the ED with dental pain, suspect nerve root etiology versus infection. Vitals are acceptable. PE is otherwise unremarkable. No I&D, labs, or imaging warranted at this time based on H&P. Viscous lidocaine dispensed today. I will send him home with a prescription for penicillin. Low suspicion for any meningitis, sepsis, peritonsillar/pharyngeal abscess, respiratory compromise, Mateo's, temporal arteritis, or other emergent systemic condition at this time. Patient is aware this condition can change from initial presentation and he needs to monitor symptoms closely. Conservative measures otherwise for symptoms. Call to schedule an appointment with a dentist for further evaluation and management. Recheck with your PCM this week as well. Return to the ED with any worsening/concerning symptoms otherwise as reviewed in discharge. Patient is in agreement. Discharge - Discharge Clinical Impression: Pain, dental Condition: Stable Disposition: HOME, SELF-CARE Instructions: Penicillin V K (OM), Toothache ([facility]) Additional Instructions: Carriere and floss twice daily Maintain fluid intake Take antibiotics as directed Mouthwash, salt water gargles, peroxide rinse as needed Tylenol/ibuprofen as needed Recheck with PCM this week Call today/tomorrow and schedule an appointment with your dentist for further evaluation Return to the ED with any worsening symptoms and/or development of fever, headache, facial swelling, swelling of lips/tongue/throat, trouble swallowing, drooling, hoarseness, neck pain/stiffness, chest pain, palpitations, syncope, shortness of breath, trouble breathing, abdominal pain, n/v/d, numbness/tingling, or other worsening symptoms that are concerning to you. Prescriptions: Penicillin V Potassium [Penicillin Vk 250 mg Tablet] 500 mg PO BID #40 tablet Forms: Elevated Blood Pressure Referrals: [facility] [Provider Group] - Follow up as needed
[2019-05-04 10:26] VITALS: BP 128/83
== END 2019-05-04 10:33 | disposition home or self-care (01) ==
LOC: ER 09:18
DX: K08.89 Other specified disorders of teeth and supporting structures (principal); R63.0 Anorexia; Z87.891 Personal history of nicotine dependence
CPT/HCPCS: 99282; J3490

== ENCOUNTER 2019-09-10 07:36 | Emergency (ER) | payer OTHER ==
[2019-09-10] MEDS ORDERED: KETOROLAC TROMETHAMINE INJ/PF 30 MG/1 ML SDV IV ONE (10:03)
[2019-09-10] MEDS ORDERED: NORMAL SALINE 1000 ML 1,000 ML IV ONE (10:03)
--- NOTE | 2019-09-10 10:06 | ER Document Report ---
ED General - General Chief Complaint: Flank Pain Stated Complaint: ABDOMINAL PAIN Time Seen by Provider: 09/10/19 09:55 Primary Care Provider: RADHA THORNTON [Primary Care Provider] - Follow up as needed Notes: Patient is a 39-year-old white male with a past medical history of diverticulitis who presents to the emergency department with a chief complaint of left-sided flank pain that began yesterday. He reports this feels similar to his previous history of diverticulitis. associated with some nausea. Denies any diarrhea but he does admit to some dysuria. Denies any history of kidney stone. Denies any known fever or vomiting. Denies any testicular pain or swelling. 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 TRAVEL OUTSIDE OF THE [place] IN LAST 30 DAYS: No - Related Data Allergies/Adverse Reactions: No Known Allergies Allergy (Verified 09/10/19 07:42) Past Medical History - Social History Smoking Status: Never Smoker Chew tobacco use (# tins/day): No Frequency of alcohol use: None Drug Abuse: None Family History: Reviewed & Not Pertinent Patient has suicidal ideation: No Patient has homicidal ideation: No Pulmonary Medical History: Reports: Hx Bronchitis Renal/ Medical History: Denies: Hx Peritoneal Dialysis GI Medical History: Reports: Hx Diverticulitis, Hx Gastroesophageal Reflux Disease Musculoskeletal Medical History: Reports Hx Arthritis - RA Psychiatric Medical History: Reports: Hx Anxiety, Hx Attention Deficit Hyperactivity Disorder, Hx Depression Past Surgical History: Reports: Hx Orthopedic Surgery - L ankle, Hx Testicular Surgery, Other - sigmoid diverticulitis. Denies: Hx Pacemaker - Immunizations Hx Diphtheria, Pertussis, Tetanus Vaccination: Yes Review of Systems - Review of Systems Gastrointestinal: Abdominal pain, Nausea Genitourinary: Dysuria -: Yes All other systems reviewed and negative Physical Exam - Vital signs Vitals: Temp Pulse Resp BP Pulse Ox 97.9 F 77 18 122/77 98 09/10/19 07:39 09/10/19 07:39 09/10/19 07:39 09/10/19 07:39 09/10/19 07:39 - General General appearance: Appears well, Alert - Respiratory Respiratory status: No respiratory distress Chest status: Nontender Breath sounds: Normal Chest palpation: Normal - Cardiovascular Rhythm: Regular Heart sounds: Normal auscultation - Abdominal Inspection: Normal Distension: No distension Bowel sounds: Normal Tenderness: Tender - Left flank, left lower quadrant Organomegaly: No organomegaly - Back Back: CVA tenderness - Bilateral, left worse than right - Neurological Neuro grossly intact: Yes Cognition: Normal Orientation: AAOx4 [place] Coma Scale Eye Opening: Spontaneous Cathryn Coma Scale Verbal: Oriented Cathryn Coma Scale Motor: Obeys Commands [place] Coma Scale Total: 15 Speech: Normal - Psychological Associated symptoms: Normal affect, Normal mood - Skin Skin Temperature: Warm Skin Moisture: Dry Skin Color: Normal Course - Vital Signs Vital signs: Temp Pulse Resp BP Pulse Ox 97.9 F 77 18 122/77 98 09/10/19 07:39 09/10/19 07:39 09/10/19 07:39 09/10/19 07:39 09/10/19 07:39 - Laboratory Result Diagrams: 09/10/19 10:00 09/10/19 10:00 Laboratory results interpreted by me: 09/10/19 09/10/19 09/10/19 10:00 10:00 10:00 WBC 10.6 H Lipase 21.7 L Urine Protein 30 H Urine Ketones 80 H Urine Blood SMALL H Urine Urobilinogen 2.0 H Discharge - Discharge Clinical Impression: Colitis, Kidney stone Condition: Stable Disposition: HOME, SELF-CARE Instructions: Colitis, Nonspecific ([facility]), Kidney Stone ([facility]) Additional Instructions: You have been referred to urology, please call them. 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 Return here or any ER immediately with any new, persistent or worsening symptoms. Prescriptions: Ciprofloxacin HCl [Cipro 500 mg Tablet] 500 mg PO BID #20 tablet Metronidazole [Flagyl 500 mg Tablet] 500 mg PO TID #30 tablet Hydrocodone/Acetaminophen [[place] 5-325 mg Tablet] 1 tab PO Q6 PRN #12 tablet PRN Reason: Referrals: [facility] [Primary Care Provider] - Follow up as needed MAK SIMMONS MD [[facility]ACHERY GREGORIO] - Follow up as needed
[2019-09-10 10:19] LABS: ABSOLUTE BASOPHILS # (AUTO) 0.1 10^3/uL (0.0-0.2); ABSOLUTE EOSINOPHILS # (AUTO) 0.2 10^3/uL (0.0-0.6); ABSOLUTE LYMPHOCYTES (AUTO) 1.4 10^3/uL (0.5-4.7); ABSOLUTE NEUT (AUTO) 7.9 10^3/uL (1.7-8.2); BASOPHILS % (AUTO) 0.7 % (0-2); EOSINOPHILS % (AUTO) 1.9 % (0-6); HEMATOCRIT 46.9 % (37.9-51.0); HEMOGLOBIN 16.6 g/dL (13.5-17.0); LYMPHOCYTES % (AUTO) 13.6 % (13-45); MEAN CORPUSCULAR HEMOGLOBIN 32.5 pg (27.0-33.4); MEAN CORPUSCULAR HGB CONC 35.3 g/dL (32.0-36.0); MEAN CORPUSCULAR VOLUME 92 fl (80-97); MONOCYTES % (AUTO) 9.6 % (3-13); PLATELET COUNT 243 10^3/uL (150-450); RED CELL DISTRIBUTION WIDTH 12.9 % (11.5-14.0); SEGMENTED NEUTROPHILS % (AUTO) 74.2 % (42-78); TOTAL CELLS COUNTED % (AUTO) 100 %; WHITE BLOOD COUNT 10.6 10^3/uL (4.0-10.5)
[2019-09-10 10:30] LABS: APPEARANCE,URINE SLIGHTLY-CLOUDY; BILIRUBIN,URINE NEGATIVE (NEGATIVE); COLOR,URINE YELLOW; GLUCOSE, URINE NEGATIVE (NEGATIVE); KETONES,URINE 80 mg/dL (NEGATIVE); LEUKOCYTE ESTERASE,URINE NEGATIVE (NEGATIVE); NITRITE,URINE NEGATIVE (NEGATIVE); PROTEIN,URINE 30 mg/dL (NEGATIVE); URINE SPECIFIC GRAVITY 1.023
[2019-09-10 10:39] LABS: ALBUMIN 4.3 g/dL (3.5-5.0); ALKALINE PHOSPHATASE 62 U/L (38-126); ANION GAP 8 (5-19); ASPARTATE AMINO TRANSFERASE 26 U/L (17-59); BILIRUBIN,TOTAL 0.8 mg/dL (0.2-1.3); BLOOD UREA NITROGEN 15 mg/dL (7-20); CALCIUM 9.3 mg/dL (8.4-10.2); CARBON DIOXIDE 30 mmol/L (22-30); CHLORIDE 99 mmol/L (98-107); GLUCOSE 89 mg/dL (75-110); POTASSIUM 4.5 mmol/L (3.6-5.0); TOTAL PROTEIN 7.1 g/dL (6.3-8.2)
[2019-09-10] MEDS ORDERED: MORPHINE SULFATE 10 MG/ML INJ IV ONE (11:49)
[2019-09-10] MEDS ORDERED: ONDANSETRON HCL INJ/PF 4 MG/2 ML SDV IV ONE (11:49)
--- NOTE | 2019-09-10 11:49 | RADIOLOGY REPORT (SQ) ---
EXAM DESCRIPTION: CT ABD/PELVIS NO ORAL OR IV COMPLETED DATE/TIME: 09/10/2019 11:21 am REASON FOR STUDY: left flank pain COMPARISON: CT of the abdomen pelvis with contrast from 09/21/2015 TECHNIQUE: CT scan of the abdomen and pelvis performed without intravenous or oral contrast. Images reviewed with lung, soft tissue, and bone windows. Reconstructed coronal and sagittal MPR images revi ewed. All images stored on PACS. All CT scanners at this facility use dose modulation, iterative reconstruction, and/or weight based d osing when appropriate to reduce radiation dose to as low as reasonably achievable (ALARA). [facility]: Dose Right [facility]: CareDose [facility]: Dose Right [facility]: Teradose 4D [facility]: Smart Song[employer] RADIATION DOSE: CT Rad equipment meets quality standard of care and radiation dose reduction techniq ues were employed. CTDIvol: 12.3 mGy. DLP: 692 mGy-cm. LIMITATIONS: None. FINDINGS: LOWER CHEST: No acute findings. NON-CONTRASTED LIVER, SPLEEN, ADRENALS: Evaluation is limited due to the absence of intravenous contr ast. There is no CT evidence of hepatic steatosis. The spleen is normal in size. There is no abnor mality of the adrenal glands. PANCREAS: No acute abnormality of the pancreas. GALLBLADDER: No abnormality that is apparent on CT. RIGHT KIDNEY AND URETER: Evaluation is limited due to the absence of intravenous contrast. There is no hydronephrosis, nephrolithiasis, hydroureter or ureterolithiasis. LEFT KIDNEY AND URETER: 9 x 5 mm calculus within a lower pole calyx. There is no hydronephrosis, hyd roureter or ureterolithiasis. AORTA AND RETROPERITONEUM: No aneurysm of the abdominal aorta. No retroperitoneal adenopathy, hemorr alla or mass. BOWEL AND PERITONEAL CAVITY: There are 2 separate short segments of wall thickening associated with t hickening of the adjacent peritoneal reflections and inflammatory stranding of the surrounding flat t hat involve the descending colon (image 43 of series 3) and sigmoid colon (image 72 of series 3) - in flammation at these sites has been present on prior CTs and clinical correlation to exclude a recurre nt acute cholecystitis is recommended. There is no extraluminal fluid collection. There is also no associated bowel obstruction or free intraperitoneal fluid/air APPENDIX: Normal. PELVIS, BLADDER, AND ABDOMINAL WALL:Urinary bladder is partially distended. The prostate gland is no rmal in size. BONES: No acute findings. OTHER: No other finding. IMPRESSION: 1. 2 separate short segments of wall thickening associated with thickening of the adjace nt peritoneal reflections and inflammatory stranding of the surrounding flat that involve the descend ing colon (image 43 of series 3) and sigmoid colon (image 72 of series 3) - inflammation at these sit es has been present on prior CTs and clinical correlation to exclude a recurrent acute cholecystitis is recommended. 2. 9 x 5 mm calculus within a left lower pole calyx. There is no associated hydronephrosis. COMMENT: Quality ID # [id number]: Final reports with documentation of one or more dose reduction techniques (e.g., Automated exposure control, adjustment of the mA and/or kV according to patient size, use of iterative reconstruction technique) TECHNICAL DOCUMENTATION: JOB ID: [id number] [employer]- All Rights Reserved Reading location - IP/workstation name: [email or web address]
[2019-09-10 13:14] VITALS: BP 127/85
== END 2019-09-10 13:21 | disposition home or self-care (01) ==
LOC: ER 07:36
DX: K52.9 Noninfective gastroenteritis and colitis, unspecified (principal); N20.0 Calculus of kidney; R10.9 Unspecified abdominal pain; R11.0 Nausea
CPT/HCPCS: 99284; 96361; 96374; 96375; 36415; 83690; 85025; 80053; 81001; 74176; J1885; J2270; J2405; J7030